=== PATIENT | female | born 1970 | race Caucasian/White ===

== ENCOUNTER → 2020-10-28 11:43 | Outpatient (BNVA) | payer OTHER, SELFPAY | PROVIDERS: Visit Provider Nurse Practitioner Family | DX: R53.83 Other fatigue (principal); E78.5 Hyperlipidemia, unspecified; M54.5 Low back pain; L03.90 Cellulitis, unspecified | CPT/HCPCS: 80048; 80061; 84443 ==

== ENCOUNTER → 2020-11-16 08:22 | Outpatient (BNVA) | payer OTHER, SELFPAY | PROVIDERS: Visit Provider Nurse Practitioner Family | DX: R30.0 Dysuria (principal); R31.9 Hematuria, unspecified; N39.0 Urinary tract infection, site not specified | CPT/HCPCS: 81000; 87077; 87086; 87184 ==

== ENCOUNTER 2022-07-27 07:02 | Outpatient (CLI) | payer BC, MEDICAID, SELFPAY ==
[2022-07-27] MEDS: iohexol 350 mg/mL 500 mL Btl (per mL) IV (07:22)
--- NOTE | 2022-07-27 07:30 | CT_ITS ---
WS: [id number] CT ABDOMEN PELVIS TECHNIQUE: Contrast-enhanced CT of the abdomen and pelvis with coronal and sagittal reformatted image s. CLINICAL INFORMATION: R19.00 - Intra-abdominal and pelvic swelling, mass and dwayne... COMPARISON: None. DLP: 491.[address] scans at [facility] use at least one of these dose optimization techniques: automated e xposure control; mA and/or kV adjustment per patient size (includes targeted exams where dose is matc hed to clinical indication); or iterative reconstruction. FINDINGS: Large heterogeneously enhancing fibroid uterus. There is a large mass in the midabdomen abutting the uterus, presumably of uterine origin. This measures approximately 18 x 13 x 24.0 CM. Associated displ acement of intra-abdominal contents. Small amount of surrounding fluid in the RIGHT adnexa. Endometri al canal displaced to the RIGHT due to additional heterogeneously enhancing uterine mass likely fibro id measuring 7.3 x 9.4 CM. Above-described large abdominal mass appears to originate from the uterus but difficult to localize due to large size and organ displacement. Recommend BREAD PANNER consultation for fu rther evaluation. Note feeding arteries and veins along the RIGHT psoas extending from the uterus to the abdominal mass.Vena cava is compressed. Mild RIGHT pelvocaliectasis. No hydronephrosis in either kidney. Normal renal parenchymal enhancement . Normal liver. Normal portal vein and splenic vein. Normal spleen. Normal gallbladder. Lung bases ar e well aerated. Mild disc bulging L4-L5 and L5-S1. Moderate esophageal hiatal hernia. Normal caliber abdominal aorta. Aorta is compressed and displaced to the LEFT. Normal sigmoid colon. CT/CT abdomen pelvis w con* [id number] IMPRESSION: 1. Large heterogeneous enhancing abdominal mass occupies the majority of the a bdomen and displaces the surrounding organs. This measures approximately 18.1 x 13.3 x 24.1 cm likely leiomyoma originating from the uterus. Leiomyosarcoma no t excluded. Recommend BREAD PANNER consultation for resection. 2. Additional heterogeneously enhancing LEFT uterine fibroid measuring 7.3 x 9 .4 cm with displacement of the uterine canal into the RIGHT pelvis. 3. Moderate esophageal hiatal hernia. 4. Small amount of fluid along the RIGHT aspect of the abdominal mass extendin g along the RIGHT psoas with feeding vessels. 5. Mild RIGHT pelvocaliectasis. Patient at risk for intermittent obstruction d ue to the large BREAD PANNER mass. Notified LULA Baugh at 07/27/2022 9:44 AM.
== END 2022-07-27 07:03 | disposition home or self-care (01) ==
LOC: RAD 07:04
PROVIDERS: Visit Provider Nurse Practitioner
DX: R19.00 Intra-abdominal and pelvic swelling, mass and lump, unspecified site (principal); K44.9 Diaphragmatic hernia without obstruction or gangrene; D25.9 Leiomyoma of uterus, unspecified
CPT/HCPCS: 74177; Q9967

== ENCOUNTER → 2022-09-02 09:09 | Outpatient (BNVA) | payer BC, MEDICAID, SELFPAY | PROVIDERS: PCP Nurse Practitioner; Visit Provider Nurse Practitioner | DX: E78.5 Hyperlipidemia, unspecified (principal) | CPT/HCPCS: 80053; 80061; 82306; 84443; 85025 ==

== ENCOUNTER 2022-10-04 13:17 | Outpatient (CLI) | payer BC, MEDICAID, SELFPAY ==
--- NOTE | 2022-10-04 14:00 | USCV_ITS ---
Opnce Val Age: 52 Gender: F : 1970 Exam Date: 10/04/2022 13:31 Ordering Phys: Kaylan Borjas WEB SPECIALIST WEB SPECIALIST Technologist: Kim Shane Sprinkler Worker Exam Location: [facility] [place]_ Indication: pain RIGHT LEFT Brachial 135.00 mmHg Brachial 132.00 mmHg Pressure (mmHg) Waveform Pressure (mmHg) Waveform 171.00 FACILITIES MANAGEMENT EXECUTIVE 177.00 164.00 DPA 161.00 1.20 Ankle/Brachial Index 1.30 133.00 Pre-Exercise Toe Pressure 141.00 0.99 Pre-Exercise Toe/Brachial Index 1.00 FINDINGS Resting XIOMARA of 1.2 on the right and 1.3 on the left Resting TBI of 0.99 on the right and 1.0 on the left CONCLUSIONS Normal resting ABIs and TBIs bilaterally No evidence of any significant arterial obstruction, based on the above findings. Dr Vasiliy Pineda MD [facility] (Electronically Signed) Final Date: 25 October 2022 09:31 S
== END 2022-10-04 13:18 | disposition home or self-care (01) ==
LOC: RAD 13:21
PROVIDERS: PCP Nurse Practitioner; Visit Provider Nurse Practitioner
DX: I73.9 Peripheral vascular disease, unspecified (principal); M79.605 Pain in left leg; M79.604 Pain in right leg
CPT/HCPCS: 93005; 93922

== ENCOUNTER 2022-10-07 12:06 | Outpatient (CLI) | payer BC, MEDICAID, SELFPAY ==
[2022-10-07 13:05] VITALS: BMI 29.3
--- NOTE | 2022-10-07 13:08 | ECG_ITS ---
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 Interpretive Statements NAME OF STUDY: TREADMILL STRESS ECHOCARDIOGRAM INDICATION: Pre Operative Clearance PROCEDURE: At the baseline, the patient's blood pressure was 134/80 mm Hg with a heart rate of 65 bpm and oxygen saturation of 95%. The baseline electrocardiogram showed normal sinus rhythm with nonspecific T wave changes in anterior leads. The patient exercised for 6 min 39 seconds on a standard Giacomo protocol. Patient attained a maximum heart rate of 153 beats per minute(90% of the maximum predicted heart rate) with a blood pressure at the peak exercise of 190/88 mm Hg. The EKG at the peak exercise revealed sinus tachycardia with no significant ST-T wave changes. Patient did not have any chest pain or any significant EKG changes with the exercise During the recovery phase, there were no new changes. Blood pressure at the end of the recovery phase was 121/69 mm Hg with a heart rate of 78 per minute and oxygen saturation of 98%. Echocardiographic pictures were taken at the baseline, immediately following the peak exercise and during the recovery phase. CONCLUSION: 1. Normal EKG response to treadmill exercise. 2. No exercise-induced chest pain or cardiac arrhythmia. 3. Baseline normal blood pressure with hypertensive response to exercise. 4. Good exercise tolerance, attained a maximum of 10.2 METs 5. Please see separate report for the echocardiographic response to exercise. Electronically Signed On 10-07-2022 15:07:42 CDT by Eva Shelley M.D. [email or web address]
--- NOTE | 2022-10-07 13:09 | USCV_ITS ---
Stress Echo Val Ponce Age: 52 Gender: F : 1970 Exam Date: 10/07/2022 13:19 Ordering Phys: Eva Shelley MD ([email or web address]) Technologist: Frankie Lobato [place]am Location[place] [facility] [place] Indication: pre-op clearance Rhythm: Sinus Patient History: Family history Cardiac Medications: NONE Medications in past 24 hours: Contrast: Stress Results Protocol: Giacomo Total dose(mL): Exercise Duration (min:sec): 06:39 METS: 10.2 Resting HR: 63 Resting BP: 134 / 80 Peak HR: 153 Peak BP: 193 / 99 Max Predicted HR: 170 90 % Max Predicted HR Target HR: 145 Double Product: 47931 Stress Summary: The patient's target heart rate was achieved BP Response: Normal Reason for Termination: Maximal effort/unable to continue Cardiac Symptoms: None ECG Analysis Resting ECG: Stress ECG: Arrhythmia: MEASUREMENTS (Male/Female) Normal Values FINDINGS PROCEDURE: At the baseline, the patient's blood pressure was 134/80 mmHg with a heart rate of 63 bpm. The patient exercised for 6 minutes 39 seconds on a standard Giacomo protocol. Patient attained a maximum heart rate of 153 beats per minute(90% of the maximum predicted heart rate) with a blood pressure at the peak exercise of 193/99 mm Hg. During the recovery phase, there were no new changes. Echocardiographic pictures were taken at the baseline, immediately following the peak exercise and during the recovery phase. Baseline echocardiogram: Normal left ventricular size and systolic function with ejection fraction estimated at 60 %. No regional wall motion abnormalities. Normal right ventricle size and systolic function. Normal left and right atrial size. No pericardial effusion. No intracardiac masses. Peak exercise echocardiogram: Normal augmentation of left ventricular systolic function with exercise. No new regional wall motion abnormalities. Recovery echocardiogram: Left ventricular systolic function normalizes. No regional wall motion abnormalities. CONCLUSIONS 1. This is a treadmill stress echocardiogram. 2. Good exercise tolerance, attained a maximum of 10.2 METs. Double product of 29,530. 3. Normal blood pressure and heart rate response to exercise. 4. Normal echocardiographic response to exercise. 5. Normal EKG response to treadmill exercise. Eva Shelley MD (Electronically Signed) Final Date: 11 October 2022 17:04 S
[2022-10-07 13:47] VITALS: BP 121/69; PULSE 77
== END 2022-10-07 12:07 | disposition home or self-care (01) ==
LOC: CDL 12:06
PROVIDERS: PCP Nurse Practitioner; Visit Provider Nurse Practitioner
DX: Z01.810 Encounter for preprocedural cardiovascular examination (principal); R19.00 Intra-abdominal and pelvic swelling, mass and lump, unspecified site
CPT/HCPCS: 93017; 93350

== ENCOUNTER 2022-10-22 06:57 | Emergency (ER) | payer BC, MEDICAID, SELFPAY ==
[2022-10-22 07:05] VITALS: BP 136/77; PULSE 87; RESP 18; TEMP 36.9; O2SAT 98; BMI 26.2
--- NOTE | 2022-10-22 07:09 | ECG_ITS ---
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 Measurements Intervals [place] Rate: 90 P: 61 MD: 188 QRS: 40 QRSD: 72 T: 46 QT: 321 QTc: 395 Interpretive Statements SINUS RHYTHM NONSPECIFIC T-WAVE ABNORMALITY Compared to ECG 10/04/2022 10:38:32 No significant changes Electronically Signed On 10-22-2022 12:29:23 CDT by Willie Raza M.D. [email or web address]
--- NOTE | 2022-10-22 07:28 | W.ED.BACK ---
HPI - Back Pain/Injury General: Chief Complaint: Back Pain/Injury Stated Complaint: sob, chest/neck/shoulder pain Time Seen by Provider: 10/22/22 07:20 Source: patient Mode of arrival: ambulatory History of Present Illness: 52-year-old female presents emergency complaining of left flank pain. Her symptoms began a week ago at which time she was seen at a local primary care clinic started on antibiotics presumptively for UTI advised to return if has worsening symptoms. In last 24 hours symptoms have worsened significantly she has sharp pain in the left flank radiating down into the groin. She denies hematuria she has been nauseous no hematochezia or melena several weeks ago she had a hysterectomy. She seemed to been recovering well from that until this began. She denies any fever sweats chills no hematochezia melena hematemesis coffee-ground emesis. Onset (ago): hour(s) Timing: constant Severity: moderate Similar Symptoms Previously: No Quality: sharp Location: left flank Exacerbating factors: movement and deep breaths Relieving factors: other (Remaining still) Associated symptoms: Reports difficulty walking; Deny abdominal pain, arthralgias, chills, change in bowel habits, dysuria, fatigue, fecal incontinence, fever(s), hematuria, myalgias, nausea, numbness, syncope, tingling/numbness/burning, urinary frequency, urinary urgency, vomiting or weakness Review of Systems Const: Denies: fever(s), chills or fatigue Card: Denies: syncope GI: Denies: abdominal pain, nausea, vomiting, fecal incontinence or change in bowel habits : Denies: dysuria, urinary urgency or hematuria Neuro: Reports: difficulty walking [facility] PFSH: Medical History Abnormal EKG Environmental allergies Hyperlipidemia Uterine fibroid Family History Father Hypertension CAD (coronary artery disease) Dementia Myocardial infarction Hyperlipidemia Cardiac arrhythmia Renal failure Mother CAD (coronary artery disease) CHF (congestive heart failure) Brother Cancer prostate Grandfather CAD (coronary artery disease) Hypertension Cardiac arrhythmia CHF (congestive heart failure) Grandmother Stroke CHF (congestive heart failure) Social History (Reviewed 10/22/22 @ 12:24 by GRETCHEN Leiva Smoking and tobacco status: former smoker Physical Exam Const: GENERAL APPEARANCE: cooperative and comfortable ORIENTATION/CONSCIOUSNESS: Yes awake, Yes oriented to person, Yes oriented to place and Yes oriented to time HENMT: COMMON NORMALS: normocephalic, atraumatic and hearing grossly normal bilaterally HEAD & SCALP: normocephalic and atraumatic Resp: COMMON NORMALS: normal respiratory effort, No retractions and No use of accessory muscles AUSCULTATION: rales on the left at the base Cardio: COMMON NORMALS: regular rate, regular rhythm and No murmurs present (Cardio) RATE: regular rate RHYTHM: regular rhythm GI: COMMON NORMALS: Soft to palpation and No hepatosplenomegaly present AUSCULTATION: Yes normoactive bowel sounds PALPATION: Yes Soft to palpation, No Tenderness to palpation present (GI), No Guarding due to palpation present (GI) and Yes No hepatosplenomegaly present Extremity: COMMON NORMALS: normal to inspection, capillary refill normal, no clubbing, cyanosis or edema, no calf tenderness and no pedal edema Neuro: SENSORIUM/ORIENTATION: Yes oriented to person, Yes oriented to place and Yes oriented to time Skin: COMMON NORMALS: no rashes or lesions noted GENERAL SKIN EXAM: no rashes or lesions noted Course Vital Signs: Vital signs: Vital Signs Temperature 98.4 F 10/22/22 07:05 Pulse Rate 89 10/22/22 10:30 Respiratory Rate 16 10/22/22 10:30 Blood Pressure 124/76 10/22/22 10:30 Pulse Oximetry 98 10/22/22 10:30 Oxygen Delivery Me thod Room Air 10/22/22 10:30 MDM - Back Pain/Injury Medical Decision Making Left lower lobe pneumonia at the costophrenic angle. CTA shows small peripheral PEs. Lovenox given here started on Eliquis also started on oral antibiotics vital signs are stable no sign of right heart strain oxygenation normal on room air. Discharge home discussed patient importance of maintaining a day coagulant until released by her primary care doctor should follow-up with her primary care doctor within a month and have her primary care doctor continue the refills on the anticoagulant until she is taken off of it. Medical Records I reviewed the patient's medical records. Labs I reviewed the patient's lab results. 10/22/22 07:32 10/22/22 07:32 Radiology Impressions Chest X-Ray 10/22/22 07:34 IMPRESSION: 1. Nonspecific left lung base opacity favors atelectasis or pneumonia. 2. A small left pleural fluid collection may be present as well. Laboratory Results WBC 13.4 10^3/uL (4.0-10.0) H 10/22/22 07:32 RBC 3.64 10^6/uL (4.1-5.3) L 10/22/22 07:32 Hgb 10.4 g/dL (11.5-15.3) L 10/22/22 07:32 Hct 33.3 % (37.0-47.0) L 10/22/22 07:32 MCV 91.5 fl (81-99) 10/22/22 07:32 MCH 28.6 pg (28.0-34.0) 10/22/22 07:32 MCHC 31.2 g/dL (30.0-36.0) 10/22/22 07:32 RDW 12.9 % (12.1-15.1) 10/22/22 07:32 Plt Count 323 10^3/cmm (130-400) 10/22/22 07:32 MPV 10.3 fL (7.4-10.4) 10/22/22 07:32 Neut % (Auto) 87.4 % 10/22/22 07:32 Lymph % (Auto) 5.6 % 10/22/22 07:32 [place] % (Auto) 6.2 % 10/22/22 07:32 Eos % (Auto) 0.1 % 10/22/22 07:32 Baso % (Auto) 0.3 % 10/22/22 07:32 Neut # (Auto) 11.66 10^3/uL (1.8-7.7) H 10/22/22 07:32 Lymph # (Auto) 0.8 10^3/uL (0.8-4.8) 10/22/22 07:32 [place] # (Auto) 0.8 10^3/uL (0.2-0.9) 10/22/22 07:32 Eos # (Auto) 0.0 10^3/uL (0.0-0.8) 10/22/22 07:32 Baso # (Auto) 0.0 10^3/uL (0.0-0.1) 10/22/22 07:32 Nucleated RBC % (auto) 0 % 10/22/22 07:32 Nucleated RBCs # 0.0 /100WBC 10/22/22 07:32 Sodium 136 mmol/L (136-145) 10/22/22 07:32 Potassium 4.3 mmol/L (3.5-5.1) 10/22/22 07:32 Chloride 101 mmol/L (98-107) 10/22/22 07:32 Carbon Dioxide 22 mmol/L (22-29) 10/22/22 07:32 Anion Gap 17.3 (5-19) 10/22/22 07:32 BUN 8 mg/dL (6-20) 10/22/22 07:32 Creatinine 0.5 mg/dL (0.5-0.9) 10/22/22 07:32 GFR Calculation 130.6 mL/min (90-130) H 10/22/22 07:32 Glucose 103 mg/dL (65-115) 10/22/22 07:32 Calculated Osmolality 281 mOsm/kg (285-295) L 10/22/22 07:32 Calcium 9.2 mg/dL (8.5-10.5) 10/22/22 07:32 Total Bilirubin 0.4 mg/dL (0.15-1.2) 10/22/22 07:32 AST 47 U/L (0-32) H 10/22/22 07:32 ALT 49 U/L (0-33) H 10/22/22 07:32 Alkaline Phosphatase 160 U/L (35-105) H 10/22/22 07:32 Total Protein 7.4 g/dL (6.6-8.7) 10/22/22 07:32 Albumin 3.5 g/dL (3.5-5.2) 10/22/22 07:32 Globulin 3.9 g/dL (1.3-4.6) 10/22/22 07:32 Urine Color Yellow (Yellow) 10/22/22 07:41 Urine Appearance Clear (CLEAR) 10/22/22 07:41 Urine pH 6 (5-7) 10/22/22 07:41 Ur Specific Gepp 1.015 (1.005-1.030) 10/22/22 07:41 Urine Protein Neg (Negative) 10/22/22 07:41 Urine Glucose (UA) Norm (Normal) 10/22/22 07:41 Urine Ketones Negative (Negative) 10/22/22 07:41 Urine Blood 2+ (Negative) H 10/22/22 07:41 Urine Nitrate Negative (Negative) 10/22/22 07:41 Urine Bilirubin Neg (Negative) 10/22/22 07:41 Urine Urobilinogen Norm mg/dL (Negative) 10/22/22 07:41 Ur Leukocyte Esterase Negative (Negative) 10/22/22 07:41 Urine RBC 0-4 /hpf (0-2) H 10/22/22 07:41 Urine WBC 0-4 /hpf (0-5) H 10/22/22 07:41 Ur Squamous Epith Cells 5-10 /hpf (0-5) H 10/22/22 07:41 Amorphous Sediment Not Reportable 10/22/22 07:41 Urine Bacteria 1+ /hpf (NONE) H 10/22/22 07:41 Discharge Plan Discharge Patient Disposition: Home Clinical Impression: Pulmonary embolism, Left lower lobe pneumonia Condition: Stable Prescriptions: New levofloxacin 750 mg tablet 750 mg PO DAILY 7 Days Qty: 7 0RF Eliquis DVT-PE Treat 30D Start 5 mg (74 tabs) tablets,dose pack See Rx Instructions .ROUTE .COMPLEX Qty: 74 0RF Rx Instructions: orally per package directions hydrocodone-acetaminophen 5-325 mg tablet 1 tab PO Q6H PRN (Reason: pain) Qty: 15 0RF No Action multivitamin Tablet 1 tab PO DAILY acetaminophen 325 mg Tablet 650 mg PO QID PRN (Reason: Pain) Discharge Orders: Discharge ED (Routine); Ordered 10/22/22 Ordered By: Guillermo Queen Referrals: Kaylan Borjas FNP [Primary Care Provider] - Discharge Diet: Usual diet Discharge Activity: Increase activity as tolerated Patient Instructions: Pulmonary Embolism (ED), Pneumonia (ED), Opioid Safety, Pain Management Activity Restrictions/Additional Instructions: Follow-up with your primary care doctor within the week. Return for worsening problems. You should continue on the Eliquis after this initial prescription is completed your primary care doctor will refill this for you Coding Level of Care Code ED Commercial Correspondent for Filiberto Watson
--- NOTE | 2022-10-22 07:34 | XRR_ITS ---
PROCEDURE INFORMATION: Exam: XR Chest Exam date and time: 10/22/2022 7:47 AM Age: 52 years old Clinical indication: Cough and dyspnea; Prior surgery; Surgery date: 3-7 days post-operative; Surgery type: Hysto; Additional info: Dyspnea/cough TECHNIQUE: Imaging protocol: Radiologic exam of the chest. Views: 1 view. Total images: 1 COMPARISON: CT abdomen pelvis w con* [id number] 07/27/2022 7:18 AM FINDINGS: Lungs: Nonspecific left lung base opacity favors atelectasis or pneumonia. Pleural spaces: A small left pleural fluid collection may be present as well. Heart/Mediastinum: Unremarkable. No cardiomegaly. Bones/joints: Unremarkable. XR/XR chest 1V portable [id number] IMPRESSION: 1. Nonspecific left lung base opacity favors atelectasis or pneumonia. 2. A small left pleural fluid collection may be present as well.
[2022-10-22 07:42] LABS: Basophils % 0.3 %; Eosinophils % 0.1 %; Hematocrit 33.3 % (37.0-47.0); Hemoglobin 10.4 g/dL (11.5-15.3); Lymphocytes # 0.8 10^3/uL (0.8-4.8); Lymphocytes % 5.6 %; Mean Corpuscular HGB Conc 31.2 g/dL (30.0-36.0); Mean Corpuscular Hemoglobin 28.6 pg (28.0-34.0); Mean Corpuscular Volume 91.5 fl (81-99); Mean Platelet Volume 10.3 fL (7.4-10.4); Monocytes # 0.8 10^3/uL (0.2-0.9); Monocytes % 6.2 %; Neutrophils # 11.66 10^3/uL (1.8-7.7); Neutrophils % 87.4 %; Nucleated Red Blood Cells % 0 %; Platelet Count 323 10^3/cmm (130-400); Red Blood Count 3.64 10^6/uL (4.1-5.3); Red Cell Distribution Width 12.9 % (12.1-15.1); White Blood Count 13.4 10^3/uL (4.0-10.0)
[2022-10-22 08:02] VITALS: RESP 20
[2022-10-22] MEDS: ondansetron 2 mg/ML SDV 2 mL 4 MG IVP (08:02)
[2022-10-22] MEDS: pantoprazole 40 mg SDV 80 MG IVP (08:02)
[2022-10-22] MEDS: morphine 4 mg/mL SDV 1 mL IVP (08:02)
[2022-10-22 08:21] LABS: Alanine Aminotransferase 49 U/L (0-33); Albumin Level 3.5 g/dL (3.5-5.2); Alkaline Phosphatase 160 U/L (35-105); Anion Gap 17.3 (5-19); Aspartate Amino Transferase 47 U/L (0-32); Blood Urea Nitrogen 8 mg/dL (6-20); Calcium 9.2 mg/dL (8.5-10.5); Carbon Dioxide 22 mmol/L (22-29); Chloride 101 mmol/L (98-107); Globulin 3.9 g/dL (1.3-4.6); Glomerular Filtration Rate 130.6 mL/min (90-130); Glucose 103 mg/dL (65-115); Osmolality Calculated 281 mOsm/kg (285-295); Potassium 4.3 mmol/L (3.5-5.1); Sodium 136 mmol/L (136-145); Total Bilirubin 0.4 mg/dL (0.15-1.2); Total Protein 7.4 g/dL (6.6-8.7)
[2022-10-22 08:26] LABS: Add Urine Microscopic? YES; Bilirubin Urine Neg (Negative); Blood Urine 2+ (Negative); Glucose Urine UA Norm (Normal); Ketones Urine Negative (Negative); Leukocyte Esterase Urine Negative (Negative); Nitrate Urine Negative (Negative); Protein Urine Neg (Negative); Specific Gravity, Urine 1.015 (1.005-1.030); Urine Appearance Clear (CLEAR); Urine Color Yellow (Yellow); Urobilinogen Urine Norm (Negative); pH Urine 6 (5-7)
[2022-10-22 08:27] LABS: Add Urine Culture? No; Bacteria Urine 1+ /hpf; RBC Urine 0-4 /hpf (0-2); WBC Urine 0-4 /hpf (0-5)
--- NOTE | 2022-10-22 09:15 | CTR_ITS ---
PROCEDURE INFORMATION: Exam: CTA Chest With Contrast Exam date and time: 10/22/2022 9:22 AM Age: 52 years old Clinical indication: Left-sided; Prior surgery; Surgery date: 3-7 days post-operative; Surgery type: Hysto; Patient HX: Pain under left breast; Additional info: Tachypnea, chest pain TECHNIQUE: Imaging protocol: Computed tomographic angiography of the chest with contrast. Exam focused on the arteries. 3D rendering (Not supervised by radiologist): MIP and/or 3D reconstructed images were created by the technologist. Radiation optimization: All CT scans at this facility use at least one of these dose optimization techniques: automated exposure control; mA and/or kV adjustment per patient size (includes targeted exams where dose is matched to clinical indication); or iterative reconstruction. Contrast material: OMNI 350; Contrast volume: 73 ml; Contrast route: INTRAVENOUS (IV); REPORTING DATA: Count of CT and Cardiac NM exams in prior 12 months: This patient has received [address] and 0 known cardiac nuclear medicine studies in the 12 months prior to the current study. COMPARISON: CR (CHEST, ) 10/22/2022 7:47 AM RADIATION DOSE METRICS: Total DLP (mGy-cm): 306.97 FINDINGS: Pulmonary arteries: Mild bilateral lower lobe, upper lobe and right middle lobe segmental pulmonary emboli are seen, most prominent in the lower lobes (right greater than left). The main, right and left pulmonary arteries appear normal. Aorta: No thoracic aortic aneurysm. No thoracic aortic dissection. Trachea: The central airway is normal. Lungs: Small left pleural effusion. Mild left lower lobe atelectasis. Some small adjacent patchy ground-glass opacities. This may be related to atelectasis, although early pulmonary infarcts or pneumonia cannot be excluded. No right lung regions of consolidation or ground-glass opacity. No interlobular septal thickening or honeycombing seen to suggest interstitial lung disease on CT. Pleural spaces: No right pleural effusion or pneumothorax. Heart: The heart size is normal. Normal RV/LV ratio of 0.9. No pericardial effusion. No significant coronary arterial atherosclerotic vascular calcifications. Lymph nodes: No enlarged lymph nodes. Bones/joints: No acute osseous abnormalities. Soft tissues: Unremarkable. Other findings: Small hiatal hernia is seen. The stomach is not well distended with relative gastric fold prominence. CT/CT angio chest PE protcl [id number] IMPRESSION: 1. Mild bilateral lower lobe, upper lobe and right middle lobe segmental pulmonary emboli, most prominent in the lower lobes (right greater than left). No CT evidence of right ventricular strain. No thoracic aortic aneurysm or thoracic aortic dissection. 2. Small left pleural effusion. Mild left lower lobe atelectasis. Some small adjacent patchy ground-glass opacities. This may be related to atelectasis, although early pulmonary infarcts or pneumonia cannot be excluded.
[2022-10-22] MEDS: iohexol 350 mg/mL 500 mL Btl (per mL) IV (09:25)
[2022-10-22 10:30] VITALS: BP 124/76; PULSE 89; RESP 16; O2SAT 98
[2022-10-22] MEDS: enoxaparin 80 mg/0.8 mL Syringe 70 MG SUBCUT (10:50)
--- NOTE | 2022-10-22 11:12 | PC.NURSE ---
PT DENIES ANY REACTION TO INJECTION.
== END 2022-10-22 11:12 | disposition home or self-care (01) ==
PROVIDERS: Emergency Provider Family Medicine; PCP Nurse Practitioner
DX: I26.99 Other pulmonary embolism without acute cor pulmonale (principal); J18.9 Pneumonia, unspecified organism; Z87.891 Personal history of nicotine dependence; E78.5 Hyperlipidemia, unspecified
CPT/HCPCS: 36415; 71045; 71275; 80053; 81001; 85025; 93005; 96372; 96374; 96375; 99285; C9113; J1650; J2270; J2405; Q9967

== ENCOUNTER → 2022-12-14 08:35 | Outpatient (BNVA) | payer BC, MEDICAID, SELFPAY | PROVIDERS: PCP Nurse Practitioner; Visit Provider Nurse Practitioner | DX: M25.511 Pain in right shoulder (principal) | CPT/HCPCS: 73030 ==

== ENCOUNTER → 2023-04-13 08:10 | Outpatient (BNVA) | payer BC, MEDICAID, SELFPAY | PROVIDERS: PCP Nurse Practitioner; Visit Provider Nurse Practitioner Family | DX: R30.0 Dysuria (principal); Z79.899 Other long term (current) drug therapy; E78.5 Hyperlipidemia, unspecified; E55.9 Vitamin D deficiency, unspecified; M54.9 Dorsalgia, unspecified; G89.29 Other chronic pain; M54.2 Cervicalgia; S86.899A Other injury of other muscle(s) and tendon(s) at lower leg level, unspecified leg, initial encounter; Z12.31 Encounter for screening mammogram for malignant neoplasm of breast; N39.0 Urinary tract infection, site not specified | CPT/HCPCS: 80053; 80061; 81000; 81003; 82306; 83036; 84443; 85025; 87077; 87086; 87184 ==

== ENCOUNTER 2023-04-14 12:29 | Outpatient (CLI) | payer BC, MEDICAID, SELFPAY ==
--- NOTE | 2023-04-14 12:37 | XR_ITS ---
WS: [id number] Cervical spine, 4 views, 04/14/2023 Clinical Data: M54.2 - Cervicalgia Comparison: None. Findings: No compression fractures are seen. There is degenerative disc narrowing at C5-C6. There is minimal anterior spurring at C4-C5. There is no prevertebral soft tissue swelling. The odontoid is un remarkable. The soft tissues of the neck and the lung apices are normal. Impression: 1. Degenerative disc narrowing at C5-C6. 2. Minimal spurring at C4-C5.
--- NOTE | 2023-04-14 12:37 | XR_ITS ---
WS: [email or web address] Exam: XR tibia fibula RT 2V [id number] Date/Time of Exam: 04/14/2023 12:45 PM Reason For Exam: S86.899A - Other injury of other muscle(s) and tendon(s) ... In multiple views, no fractures, soft tissue swelling, or unusual calcifications are noted in or arou nd the tibia and fibula. There is normal bony alignment. No irregularity to the bony architecture i s noted. IMPRESSION: Negative RIGHT tibia and fibula.
== END 2023-04-14 12:30 | disposition home or self-care (01) ==
LOC: RAD 12:29
PROVIDERS: PCP Nurse Practitioner; Visit Provider Nurse Practitioner Family
DX: M50.322 Other cervical disc degeneration at C5-C6 level (principal); S86.899A Other injury of other muscle(s) and tendon(s) at lower leg level, unspecified leg, initial encounter; X58.XXXA Exposure to other specified factors, initial encounter
CPT/HCPCS: 72040; 73590

== ENCOUNTER 2023-04-20 09:08 | Outpatient (CLI) | payer BC, MEDICAID, SELFPAY ==
--- NOTE | 2023-04-20 09:10 | MM_ITS ---
WS: [email or web address] BILATERAL 3D TOMOSYNTHESIS DIGITAL SCREENING MAMMOGRAPHY WITH CAD CLINICAL INFORMATION: Z12.31 - Encounter for screening mammogram for malignant ... HISTORY: Screening mammogram. No current complaints. COMPARISON: None. TECHNIQUE: Bilateral CC and MLO views. FINDINGS: Scattered fibroglandular densities bilaterally. No suspicious focal mass, asymmetry, calcifications, or architectural distortion. No evidence of malignancy. IMPRESSION: MM/[place] [id number] BI-RADS: 1-Negative FOLLOW UP: 1 Year Follow-up Recommend return to annual screening mammography.
== END 2023-04-20 09:09 | disposition home or self-care (01) ==
LOC: RAD 09:08
PROVIDERS: PCP Nurse Practitioner; Visit Provider Nurse Practitioner Family
DX: Z12.31 Encounter for screening mammogram for malignant neoplasm of breast (principal)
CPT/HCPCS: 77063; 77067

== ENCOUNTER 2023-05-04 11:34 | Outpatient (CLI) | payer BC, MEDICAID, SELFPAY ==
--- NOTE | 2023-05-04 11:39 | XR_ITS ---
WS: [id number] Thoracic spine, 3 views, 05/04/2023 Clinical Data: M54.9 - Dorsalgia, unspecified Comparison: None. Findings: No compression fractures are seen. The disc heights are normal. The paravertebral regions are normal. Impression: Negative thoracic spine.
== END 2023-05-04 11:35 | disposition home or self-care (01) ==
LOC: RAD 11:34
PROVIDERS: PCP Nurse Practitioner Family; Visit Provider Nurse Practitioner Family
DX: M54.6 Pain in thoracic spine (principal); G89.29 Other chronic pain; N39.0 Urinary tract infection, site not specified
CPT/HCPCS: 72072; 81003

== ENCOUNTER → 2023-07-24 10:10 | Outpatient (BNVA) | payer BC, MEDICAID, SELFPAY | PROVIDERS: PCP Nurse Practitioner Family; Referring Provider Nurse Practitioner Family; Visit Provider Internal Medicine Pulmonary Disease | DX: Z86.711 Personal history of pulmonary embolism (principal) | CPT/HCPCS: 36415; 82785; 85025; 85049; 85378; 85384; 85610; 85613; 85651; 85730; 86003; 86038; 86140; 86146; 86147; 86200; 86225; 86235 ==

== ENCOUNTER 2023-07-31 08:40 | Outpatient (CLI) | payer BC, MEDICAID, SELFPAY ==
--- NOTE | 2023-07-31 09:00 | US_ITS ---
WS: [email or web address] Complete ABDOMINAL ULTRASOUND HISTORY: abdominal pain COMPARISON: None available. Liver: 14.5 cm in length. Normal size liver and echogenicity. No bile duct dilatation or mass. Portal Vein: Normal hepatopetal flow with monophasic waveform. Gallbladder: Normally distended gallbladder with no stones or wall thickening. CBD: 0.3 cm Pancreas: Poorly visualized. Right kidney: 9.7 cm x 5.4 x 4.7 cm. Cortex:1.0 cm. Normal size and echogenicity. No hydronephrosis or mass. Left kidney: 10.1 cm x 4.3 cm x 4.8 cm. Cortex: 1.0 cm. Normal size and echogenicity. No hydronephrosis or mass. Spleen: 9.5 cm. Normal size and echogenicity. Aorta and IVC: Unremarkable abdominal aorta and IVC. Impression: Normal complete abdomen ultrasound.
== END 2023-07-31 08:41 | disposition home or self-care (01) ==
LOC: RAD 08:41
PROVIDERS: PCP Nurse Practitioner Family; Visit Provider Internal Medicine Pulmonary Disease
DX: R10.32 Left lower quadrant pain (principal)
CPT/HCPCS: 76700

== ENCOUNTER 2023-08-15 13:26 | Outpatient (CLI) | payer BC, MEDICAID, SELFPAY ==
[2023-08-15 13:50] VITALS: PULSE 66; RESP 18; O2SAT 99
[2023-08-15] MEDS: albuterol 2.5 mg/3 mL Neb INHALATION (13:50)
[2023-08-15 13:54] VITALS: PULSE 72
== END 2023-08-15 13:27 | disposition home or self-care (01) ==
LOC: RT 13:26
PROVIDERS: PCP Nurse Practitioner Family; Visit Provider Internal Medicine Pulmonary Disease
DX: R06.02 Shortness of breath (principal)
CPT/HCPCS: 94060; 94729; J7613

== ENCOUNTER → 2023-11-28 10:49 | Outpatient (BNVA) | payer BC, MEDICAID, SELFPAY | PROVIDERS: PCP Nurse Practitioner Family; Visit Provider Nurse Practitioner Family | DX: R07.9 Chest pain, unspecified (principal); R10.84 Generalized abdominal pain; K56.41 Fecal impaction | CPT/HCPCS: 71046; 74018 ==

== ENCOUNTER 2023-12-04 12:06 | Outpatient (CLI) | payer BC, MEDICAID, SELFPAY ==
[2023-12-04] MEDS: iohexol 350 mg/mL 500 mL Btl (per mL) PO (12:58)
[2023-12-04] MEDS: iohexol 350 mg/mL 500 mL Btl (per mL) IV (13:28)
--- NOTE | 2023-12-04 13:30 | CT_ITS ---
WS: [id number] CT ABDOMEN AND PELVIS WITH CONTRAST HISTORY: R10.9 - Unspecified abdominal pain, epigastric and pelvic pain. Prior hysterectomy. TECHNIQUE: Imaging performed of the abdomen and pelvis with IV contrast. Single phase imaging of the abdomen. Coronal and sagittal reformats are submitted. All CT scans at [facility] use at [address] one of these dose optimization techniques: automated exposure control; mA and/or kV adjustment per patient size (includes targeted exams where dose is matched to clinical indication); or iterative re construction. IV CONTRAST: Omnipaque 350; 100 mL IV. Oral contrast: Yes. DLP: 561.35 mGy.cm COMPARISON: 07/27/2022 Lower thorax: Lung bases are clear. Heart is normal size. Moderate size hiatal hernia. Liver/biliary system: Normal size with no intrahepatic dilatation. Gallbladder: Normal. No gallstones or wall thickening. No pericholecystic fluid. Pancreas: Normal size pancreas and pancreatic duct. No adjacent inflammation. Spleen: Normal size spleen. No mass or infarct. Adrenal glands: Normal. Right kidney: Normal. Left kidney: Normal. Aorta: Normal. Lymphadenopathy: None. Free fluid: None. GI tract: No obstruction. Normal appendix. Very mild inflammation surrounding the distal descending c olon. No abscess. Abdominal wall: Fat containing umbilical hernia. Pelvis: No free fluid or adenopathy within the pelvis. Prior hysterectomy. LEFT adnexal/ovarian cyst 4.2 x 3.5 cm. RIGHT ovary may have been removed. Bones: Unremarkable. CT/CT abdomen pelvis w con* [id number] IMPRESSION: 1. Small LEFT ovarian cyst, 4.2 x 3.5 cm. 2. Moderate-sized hiatal hernia. 3. No GI tract obstruction. 4. No ascites. 5. Small fat-containing umbilical hernia. 6. Mild distal colon diverticulosis. There is some very mild stranding around the distal descending colon which could represent a very mild acute diverticuli tis.
== END 2023-12-04 12:07 | disposition home or self-care (01) ==
LOC: RAD 12:06
PROVIDERS: PCP Nurse Practitioner Family; Visit Provider Nurse Practitioner Family
DX: R10.9 Unspecified abdominal pain (principal); R10.2 Pelvic and perineal pain; Z90.710 Acquired absence of both cervix and uterus; N83.202 Unspecified ovarian cyst, left side; K44.9 Diaphragmatic hernia without obstruction or gangrene
CPT/HCPCS: 74177; Q9967

== ENCOUNTER → 2023-12-06 09:29 | Outpatient (BNVA) | payer BC, MEDICAID, SELFPAY | PROVIDERS: PCP Nurse Practitioner Family; Visit Provider Nurse Practitioner Family | DX: R63.5 Abnormal weight gain; R10.84 Generalized abdominal pain; R10.2 Pelvic and perineal pain | CPT/HCPCS: 80053; 81003; 83036; 84439; 84443; 85025 ==

== ENCOUNTER → 2024-01-29 08:41 | Outpatient (BNVA) | payer BC, MEDICAID, SELFPAY | PROVIDERS: PCP Nurse Practitioner Family; Visit Provider Obstetrics & Gynecology | DX: N83.202 Unspecified ovarian cyst, left side (principal) | CPT/HCPCS: 76830 ==

== ENCOUNTER → 2024-02-14 13:19 | Outpatient (BNVA) | payer BC, MEDICAID, SELFPAY | PROVIDERS: PCP Nurse Practitioner Family; Visit Provider Internal Medicine Rheumatology | DX: Z79.899 Other long term (current) drug therapy (principal); R89.9 Unspecified abnormal finding in specimens from other organs, systems and tissues | CPT/HCPCS: 36415; 83735; 84100; 84132; 85025; 86480; 86704; 86803; 87340 ==

== ENCOUNTER → 2024-05-02 08:51 | Outpatient (BNVA) | payer BC, MEDICAID, SELFPAY | PROVIDERS: PCP Nurse Practitioner Family; Visit Provider Obstetrics & Gynecology | DX: N83.202 Unspecified ovarian cyst, left side (principal); Z90.710 Acquired absence of both cervix and uterus; Z90.721 Acquired absence of ovaries, unilateral | CPT/HCPCS: 76830 ==

== ENCOUNTER → 2024-05-06 09:11 | Outpatient (BNVA) | payer BC, MEDICAID, SELFPAY | PROVIDERS: PCP Nurse Practitioner Family; Visit Provider Obstetrics & Gynecology | DX: R39.198 Other difficulties with micturition (principal) | CPT/HCPCS: 84315; 87086 ==

== ENCOUNTER 2024-11-28 12:30 | Outpatient (CLI) | payer BC, MEDICAID, SELFPAY | END 2024-11-28 12:31 | disposition home or self-care (01) | LOC: SLEEP 12:31 | PROVIDERS: PCP Nurse Practitioner Family; Visit Provider Internal Medicine Pulmonary Disease | DX: G47.30 Sleep apnea, unspecified (principal) | CPT/HCPCS: G0399 ==

== ENCOUNTER 2025-01-19 22:49 | Emergency (ER) | payer BC, MEDICAID, SELFPAY ==
--- OUTSIDE RECORDS SUMMARY | 2025-01-13 11:00 | XMS_ITS | Encounter Summary ---
Author Organization [facility] Address [address] [address] Phone Care Team Providers Care Chenille Machine Operator Name Role Phone Stevan Rodney MD Primary Care Provider Shaheed Stewart DO, Donald Unavailable [phone] Parker Card MD Unavailable Iggy Gee COMPUTER TYPESETTER KEYLINER Unavailable [phone] Kimberly Black AOCNP Unavailable [phone] Encounter Details Date Type Department Care Team (Late st Contact Info) Description 01/13/2025 11:00 AM CDT Lab LAB [facility] [address] [id number] Family history of blood clots; Personal history of PE (pulmonary embolism) Social History Tobacco Use Types Packs/Day Years Used Date Smoking Tobacco: Former Cigarettes 2 5 Q uit: 06/01/1996 Smokeless Tobacco: Never Alcohol Use Standard Drinks/Week Comments Never 0 (1 standard drink = 0.6 oz pur e alcohol) B1300 Health Literacy Answer Date Recor ded How often do you need to hav e someone help you when you read instructions, pamphlets, or other written material from your doctor or pharmacy? Never 12/12/2024 [facility] Utilities Answer Date Recorded In the past 12 months has e electric, gas, oil, or water company threatened to shut off services in your home? No 12/12/2024 Humiliation, Afraid, Rape, and Kick questionnair e Answer Date Recorded Within the last year, have y ou been afraid of your partner or ex-partner? No 12/12/2024 Within the last year, have y ou been humiliated or emotionally abused in other ways by your partner or ex-partner? No Within the last year, have y ou been kicked, hit, slapped, or otherwise physically hurt by your partner or ex-partner? No 12/12/2024 Within the last year, have y ou been raped or forced to have any kind of sexual activity by your partner or ex-partner? No 12/12/2024 Social Connection and Isolation Panel Answer Date Recorded In a typical week, how many times do you talk on the phone with family, friends, or neighbors? More than three times a week 12/12/2024 How often do you get togethe r with friends or relatives? More than three times a week 12/12/2024 How often do you attend [facility] or [facility] services? Never 12/12/2024 Do you belong to any clubs o r organizations such as congregation groups, unions, fraternal or athletic groups, or school groups? No 12/12/2024 How often do you attend meet ings of the clubs or organizations you belong to? Never 12/12/2024 Are you , , di vorced, , never , or living with a partner? 12/12/2024 AUDIT-C Answer Date Recorded Q1: How often do you have a drink containing alcohol? Never 12/12/2024 Q2: How many drinks containi ng alcohol do you have on a typical day when you are drinking? Patient does not drink Q3: How often do you have si x or more drinks on one occasion? Never 12/12/2024 Overall Financial Resource Strain (CARDIA) Answe r Date Recorded How hard is it for you to pa y for the very basics like food, housing, medical care, and heating? Not very hard 12/12/2024 PHQ-2 Answer Date Recorded Patient Health Questionnaire-2 Score 0 12/19/2024 [facility] - Occupational Stress Questionnaire Answer Date Recorded Do you feel stress - tense, restless, nervous, or anxious, or unable to sleep at night because your mind is troubled all the time - these days? To some extent 12/12/2024 Exercise Vital Sign Answer Date Recorde d On average, how many days pe r week do you engage in moderate to strenuous exercise (like a brisk walk)? 3 days 12/12/2024 On average, how many minutes do you engage in exercise at this level? 30 min 12/12/2024 Hunger Vital Sign Answer Date Recorded Within the past 12 months, y ou worried that your food would run out before you got the money to buy more. Sometimes true Within the past 12 months, t he food you bought just didn't last and you didn't have money to get more. Sometimes true PRAPARE - Transportation Answer Date Re corded In the past 12 months, has l ack of transportation kept you from medical appointments or from getting medications? No 11/29 In the past 12 months, has l ack of transportation kept you from meetings, work, or from getting things needed for daily living? No 12/12/2024 Housing Stability Vital Sign Answer Fredi e Recorded In the last 12 months, was t here a time when you were not able to pay the mortgage or rent on time? No 12/12/2024 In the past 12 months, how m any times have you moved where you were living? 0 12/12/2024 At any time in the past 12 m [facility], were you homeless or living in a intermediate (including now)? No 12/12/2024 [facility] - Mental Health Answer Date Recorde d Little interest or pleasure in doing things Not at all 12/19/2024 Feeling down, depressed, or hopeless Not at all 12/19/2024 Feeling of Stress Not on file 12/19/2024 Comments No Sex and Gender Information Value Date Recorded Sex Assigned at Female 04/09/2024 3:34 PM MANNEQUIN MOLD MAKER Legal Sex Female 3:31 PM MANNEQUIN MOLD MAKER Gender Identity Female 04/09/2024 3:34 PM MANNEQUIN MOLD MAKER Sexual Orientation Straight 05/07/2024 10 :15 AM MANNEQUIN MOLD MAKER documented as of this encounter Plan of Treatment Upcoming Encounters Date Type Department Care Team (Latest Contact Info) Description 02/06/2025 2:00 PM CDT Follow-Up [facility] [address] [place] [phone] [place] [address] [place] [address] [phone] 03/03/2025 7:30 AM MANNEQUIN MOLD MAKER Hospital Encounter [facility] [address] [place] [phone] Faustino Hummel Jr., DO [address] [place] [address] [phone] 03/03/2025 7:30 AM MANNEQUIN MOLD MAKER - 03/03/2025 9:45 AM MANNEQUIN MOLD MAKER Surgery [facility] [address] [place] [phone] Faustino Hummel Jr., [address] [id number] ROBOTIC ASSISTED LAP HIATAL HERNIA REPAIR [23637 (CPT )] Scheduled Procedures Name Priority Associated Diagnoses Date/Ti me ROBOTIC ASSISTED LAP HIATAL HERNIA REPAIR Large hiatal hernia 03/03/2025 7:30 AM MANNEQUIN MOLD MAKER ROBOTIC ASSISTED LAP NEENA/TOUPET FUNDOPLICATION Large hiatal hernia 03/03/2025 7:30 AM MANNEQUIN MOLD MAKER documented as of this encounter Procedures Procedure Name Priority Date/Time Associated Diagnosis Comments CARDIOLIPIN ANTIBODIES, IGA, IGG, IGM Routine 01/13/2025 10:51 AM CDT Family history of blood clots Personal history of PE (pulmonary embolism) BETA-2 GLYCOPROTEIN 1 ANTIBODIES, IGG AND IGM Routine 01/13/2025 10:51 AM CDT Family history of blood clots Personal history of PE (pulmonary embolism) PROTEIN C AND S PANEL, FUNCTIONAL Routine 01/13/2025 10:51 AM CDT Family history of blood clots Personal history of PE (pulmonary embolism) CBC WITH AUTO DIFFERENTIAL STAT 01/13/2025 10:51 AM CDT Family history of blood clots Personal history of PE (pulmonary embolism) ANTITHROMBIN PANEL Routine 01/13/2025 10 :51 AM CDT Family history of blood clots Personal history of PE (pulmonary embolism) CREATININE, SERUM Routine 01/13/2025 10: 51 AM CDT Family history of blood clots Personal history of PE (pulmonary embolism) LUPUS ANTICOAGULANT REFLEXIVE PANEL Routine 01/13/2025 10:51 AM CDT Family history of blood clots Personal history of PE (pulmonary embolism) D-DIMER, QUANTITATIVE STAT 01/13/2025 10:51 AM CDT Family history of blood clots Personal history of PE (pulmonary embolism) documented in this encounter Results * Creatinine, Serum (01/13/2025 10:51 AM CDT) Creatinine 0.86 0.52 - 1.04 mg/dl LAB CHEMISTRY METHOD 01/13/2025 11:25 AM CDT [facility] eGFR >60 >=60 mL/min/1.73 m2 LAB CHEMISTRY METHOD 01/13/2025 11:25 AM CDT [facility] Blood Venous blood specimen / Unknown Venipuncture / Unknown 01/13/2025 10:51 AM CDT 01/13/2025 10:56 AM CDT Parker Card MD LAB BLOOD ORDERABLES Final Resul t [facility] [address] [phone] * (ABNORMAL) D-dimer, quantitative (01/13/2025 10:51 AM CDT) D-DIMER QUANTITATIVE 0.74(H) <=0.50 ug/mlFEU LAB COAGULATION METHOD 01/13/2025 11:23 AM CDT [facility] Blood Venous blood specimen / Unknown Venipuncture / Unknown 01/13/2025 10:51 AM CDT 01/13/2025 10:56 AM CDT Parker Card MD LAB BLOOD ORDERABLES Final Resul t [facility] [address] [address] * (ABNORMAL) Protein C and S Panel, Functional (01/13/2025 10:51 AM CDT) Protein C Functional 177(H) 83 - 168 % 01/15/2025 2:10 PM CDT [email or web address] ([facility]) Comment: INTERPRETIVE INFORMATION: Protein C, Functional Access complete set of age- and/or gender-specific reference intervals for this test in the [employer] Test Directory (Leo). Protein C may be artifactually overestimated in the presence of heparin, direct thrombin inhibitors, or direct factor Xa inhibitors. If clinically indicated, consider repeat testing on a new specimen for confirmation after the presence of anticoagulant medications has been excluded. (J Thromb Haemost. 2020; 18(2):271-277). Protein S Functional 120 57 - 131 % 01/15/2025 2:10 PM CDT [email or web address] ([facility]) Comment: INTERPRETIVE INFORMATION: Protein S, Functional Patients on warfarin may have decreased functional protein S values. Patients should be off warfarin therapy for two weeks for accurate measurement of functional protein S. Artificially increased functional protein S values may be due to heparin therapy or the presence of direct thrombin inhibitors or factor Xa inhibitors. Access complete set of age- and/or gender-specific reference intervals for this test in the [employer] [facility] Test Directory (Leo). Performed By: [facility] [address] [place] [id number] Glove Stitcher: Selwyn Boudreaux MD, PhD CLIA Number: [id number] Blood Venous blood specimen / Unknown Venipuncture / Unknown 01/13/2025 10:51 AM CDT 01/13/2025 10:56 AM CDT Parker Card MD LAB BLOOD ORDERABLES Final Resul t [facility] [address] [place] [address] * Lupus Anticoagulant Reflexive Panel (01/13/2025 10:51 AM CDT) Prothrombin Time 12.0 12.0 - 15.5 s 01/15/2025 8:11 PM CDT [facility] ([facility]) Ptt-La Ratio 0.77 <=1.20 01/15/2025 8:11 PM CDT [facility] ([facility]) Drvvt Screen 0.86 <=1.20 01/15/2025 8:11 PM CDT [facility] ([facility]) Anti-Xa Qualitative Interpretation Not Performed Not Present 01/15/2025 8:11 PM CDT [facility] ([facility]) Thrombin Time Not Performed <=19.5 s 01/15/2025 8:11 PM CDT [facility] ([facility]) Anticoagulant Medication Neutralization Not Performed Not Performed 01/15/2025 8:11 PM CDT [facility] ([facility]) Neutralized PTT-LA Ratio Not Performed <=1.20 01/15/2025 8:11 PM CDT [facility] ([facility]) Neutralized dRVVT Screen Ratio Not Performed <=1.20 01/15/2025 8:11 PM CDT [facility] ([facility]) Drvvt 1:1 Mix Not Performed <=1.20 01/15/2025 8:11 PM CDT [facility] ([facility]) Drvvt Confirmation Not Performed <=1.20 01/15/2025 8:11 PM CDT [facility] ([facility]) Hexagonal Phospholipid Confirmation Not Performed <=7.9 s 01/15/2025 8:11 PM CDT [facility] ([facility]) Lupus Anticoagulant Interpretation See Note 01/15/2025 8:11 PM CDT [facility] ([facility]) Comment: Lupus anticoagulant not detected. This panel did not detect evidence for heparin, direct thrombin inhibitors, or direct Xa inhibitors and drug neutralization was not performed. Lupus anticoagulant antibodies are heterogeneous and antibody titers fluctuate over time. Laboratory tests used to identify lupus anticoagulant demonstrate variable sensitivity. Testing is best performed when the patient is not acutely ill and not anticoagulated. If there is strong clinical suspicion for antiphospholipid antibody syndrome (APS), consider testing for cardiolipin and beta-2 glycoprotein 1 antibodies (IgG and IgM) if this testing has not already been performed. INTERPRETIVE INFORMATION: Lupus Anticoagulant Reflex Panel This test was developed and its performance characteristics determined by [facility]. It has not been cleared or approved by the U.S. Food and Drug Administration. This test was performed in a CLIA-certified laboratory and is intended for clinical purposes. Performed By: [facility] [address] [place] [address] Glove Stitcher: Selwyn Boudreaux MD, PhD CLIA Number: [id number] Blood Venous blood specimen / Unknown Venipuncture / Unknown 01/13/2025 10:51 AM CDT 01/13/2025 10:56 AM CDT Parker Card MD LAB BLOOD ORDERABLES Final Resul t [facility] ([facility]) [address] [place] [address] * CBC auto differential (01/13/2025 10:51 AM CDT) White Blood Count 6.2 4.0 - 11.4 K/mm3 01/13/2025 11:03 AM CDT [facility] Red Blood Count 4.48 3.93 - 5.22 M/mm3 01/13/2025 11:03 AM T [facility] Hemoglobin 13.0 11.2 - 15.7 g/dL 01/13/2025 11:03 AM T [facility] Hematocrit 37.7 34.1 - 44.9 % 01/13/2025 11:03 AM T [facility] Mean Cell Volume 84.2 81.6 - 97.4 fL 01/13/2025 11:03 AM T [facility] MEAN CORPUSCULAR HEMOGLOBIN 29.0 26.7 - 32.8 pg 01/13/2025 11:03 AM T [facility] Mean Corpuscular Hemoglobin Concentration 34.4 31.6 - 36.0 g/dL 01/13/2025 11:03 AM T [facility] RED CELL DISTRIBUTION WIDTH-SD 42.9 35.6 - 49.5 fl 01/13/2025 11:03 AM T [facility] Platelet Count 289 150 - 450 K/mm3 01/13/2025 11:03 AM CDT [facility] Mean Platelet Volume 8.5 7.0 - 10.2 fL 01/13/2025 11:03 AM T [facility] ANC (AUTOMATED) 4.1 2.0 - 9.8 K/ul 01/13/2025 11:03 AM T [facility] Lymphocytes % 25.1 10.1 - 46.5 % 01/13/2025 11:03 AM T [facility] Monocytes % 5.5 3.2 - 12.9 % 01/13/2025 11:03 AM T [facility] Neutrophils % 66.1 40.6 - 81.1 % 01/13/2025 11:03 AM CDT [facility] Eosinophils % 2.2 0.0 - 4.2 % 01/13/2025 11:03 AM T [facility] Basophils % 1.1 0.0 - 1.1 % 01/13/2025 11:03 AM T [facility] Lymphocytes Absolute 1.5 0.6 - 3.6 K/uL 01/13/2025 11:03 AM T [facility] Monocytes Absolute 0.3 0.3 - 1.1 K/uL 01/13/2025 11:03 AM T [facility] Neutrophils Absolute 4.1 2.0 - 9.8 K/uL 01/13/2025 11:03 AM T [facility] Eosinophils Absolute 0.10 0.00 - 0.60 K/uL 01/13/2025 11:03 AM T [facility] Basophils Absolute 0.1 0.0 - 0.1 1000/uL 01/13/2025 11:03 AM T [facility] Nucleated RBC % 0.1 0.0 - 0.2 % 01/13/2025 11:03 AM T [facility] Nucleated RBC Absolute 0.01 0.00 - 0.03 K/ul 01/13/2025 11:03 AM T [facility] Blood Venous blood specimen / Unknown Venipuncture / Unknown 01/13/2025 10:51 AM CDT 01/13/2025 10:56 AM CDT Parker Card MD LAB BLOOD ORDERABLES Final Resul t [facility] [address] [address] * Cardiolipin Antibodies, IgA, IgG, IgM (01/13/2025 10:51 AM CDT) [facility] Cardiolipin Antibody Igg <10 <=14 GPL 01/15/2025 6:37 AM CDT [facility] ([facility]) Comment: INTERPRETIVE INFORMATION: Anti-Cardiolipin IgG Ab <=14 GPL: Negative 15-19 GPL: Indeterminate 20-80 GPL: Low to Moderately Positive 81 GPL or above: High Positive The persistent presence of IgG and/or IgM cardiolipin (CL) antibodies in moderate or high levels (greater than 40 GPL and/or greater than 40 MPL units) is a laboratory criterion for the diagnosis of antiphospholipid syndrome (APS). Persistence is defined as moderate or high levels of IgG and/or IgM CL antibodies detected in two or more specimens drawn at least 12 weeks apart (J Throm Haemost. 2006;4:295-306). Lower positive levels of IgG and/or IgM CL antibodies (above cutoff but less than 40 GPL and/or less than 40 MPL units) may occur in patients with the clinical symptoms of APS; therefore, the actual significance of these levels is undefined. Results should not be used alone for diagnosis and must be interpreted in light of APS-specific clinical manifestations and/or other criteria phospholipid antibody tests. Cardiolipin Antibody Igm 11 <=12 MPL 01/15/2025 6:37 AM CDT [facility] ([facility]) Comment: INTERPRETIVE INFORMATION: Anti-Cardiolipin IgM <=12 MPL: Negative 13-19 MPL: Indeterminate 20-80 MPL: Low to Moderately Positive 81 MPL or above: High Positive The persistent presence of IgG and/or IgM cardiolipin (CL) antibodies in moderate or high levels (greater than 40 GPL and/or greater than 40 MPL units) is a laboratory criterion for the diagnosis of antiphospholipid syndrome (APS). Persistence is defined as moderate or high levels of IgG and/or IgM CL antibodies detected in two or more specimens drawn at least 12 weeks apart (J Throm Haemost. 2006;4:295-306). Lower positive levels of IgG and/or IgM CL antibodies (above cutoff but less than 40 GPL and/or less than 40 MPL units) may occur in patients with the clinical symptoms of APS; therefore, the actual significance of these levels is undefined. Results should not be used alone for diagnosis and must be interpreted in light of APS-specific clinical manifestations and/or other criteria phospholipid antibody tests. Cardiolipin Antibody Iga <10 <=11 APL 01/15/2025 6:37 AM CDT [facility] ([facility]) Comment: INTERPRETIVE INFORMATION: Cardiolipin Antibodies, IgA <=11 APL: Negative 12-19 APL: Indeterminate 20-80 APL: Low to Moderately Positive 81 APL or above: High Positive Performed By: [facility] [address] [place] [address] Glove Stitcher: Selwyn Boudreaux MD, PhD CLIA Number: [id number] Blood Venous blood specimen / Unknown Venipuncture / Unknown 01/13/2025 10:51 AM CDT 01/13/2025 10:56 AM CDT Parker Card MD LAB BLOOD ORDERABLES Final Resul t [facility] ([facility]) [address] [place] [address] * Beta-2 Glycoprotein 1 Antibodies, IgG & IgM (01/13/2025 10:51 AM CDT) [id number] 1, Igg Antibody <10 <=20 SGU 01/15/2025 4:33 AM CDT [facility] ([facility]) A2Ektuvurxnsks 1, Igm Antibody <10 <=20 SMU 01/15/2025 4:33 AM CDT [facility] ([facility]) Comment: INTERPRETIVE INFORMATION: [id number] I, IgG and IgM Antibody The persistent presence of IgG and/or IgM beta 2 glycoprotein I (B2GPI) antibodies is a laboratory criterion for the diagnosis of antiphospholipid syndrome (APS). Persistence is defined as moderate or high levels of IgG and/or IgM B2GPI antibodies detected in two or more specimens drawn at least 12 weeks apart (J Throm Haemost. 2006;4:295-306). B2GPI results greater than 20 SGU (IgG) and/or SMU (IgM) are considered positive based on the cutoff values established for this test. International reference materials and consensus units for anti-B2GPI antibodies have not been established (Clin Gena Acta. 2012;413(1-2):358-60; Arthritis Rheum. 2012;64(1):1-10.); results can be variable between different commercial immunoassays and cannot be compared. Strong clinical correlation is recommended for a diagnosis of APS. Low positive IgG and IgM B2GPI antibody levels should be interpreted in light of APS-specific clinical manifestations and/or other criteria phospholipid antibody tests. Performed By: [facility] [address] [place] [address] Glove Stitcher: Selwyn Boudreaux MD, PhD CLIA Number: [id number] Blood Venous blood specimen / Unknown Venipuncture / Unknown 01/13/2025 10:51 AM CDT 01/13/2025 10:56 AM CDT Parker Card MD LAB BLOOD ORDERABLES Final Resul t [facility]) [address] [place] [address] * Antithrombin panel (01/13/2025 10:51 AM CDT) Antithrombin, Enzymatic (Activity 121 76 - 128 % 01/15/2025 6:45 PM CDT [facility]) Comment: REFERENCE INTERVAL: Antithrombin, Enzymatic (Activity) Access complete set of age- and/or gender-specific reference intervals for this test in the [employer] Test Directory (Leo). Antithrombin may be artifactually overestimated in the presence of direct thrombin inhibitors. If clinically indicated, consider repeat testing on a new specimen for confirmation after the presence of anticoagulant medications has been excluded. (J Thromb Haemost. 2020; 18(1):17-22). Antithrombin Antigen 104 82 - 136 % 01/15/2025 6:45 PM CDT [facility]) Comment: REFERENCE INTERVAL: Antithrombin Antigen Access complete set of age- and/or gender-specific reference intervals for this test in the [facility] Test Directory (Leo). Performed By: [facility] [address] [place] [address] Glove Stitcher: Selwyn Boudreaux MD, PhD CLIA Number: [id number] Blood Venous blood specimen / Unknown Venipuncture / Unknown 01/13/2025 10:51 AM CDT 01/13/2025 10:56 AM CDT Parker Card MD LAB BLOOD ORDERABLES Final Resul t [facility] ([facility]) [address] [place] [address] documented in this encounter Visit Diagnoses Diagnosis Large hiatal hernia- Primary Family history of blood clots Personal history of PE (pulmonary embolism) Personal history of venous thrombosis and embolism Large hiatal hernia documented in this encounter Care Teams Chenille Machine Operator Relationship Specialty Start Date End Date Stevan Rodney MD [address] [place] [address] [phone] PCP - General Family Medicine 07/11/24 Faustino Hummel Jr., DO [address] [place] [phone] [facility] Med Onc Original Referring Provider General Surgery 11/22/24 Parker Card MD [address] [place] [address] [id number] Medical Oncologist Oncology 11/22/24 Iggy Gee FNP [address] [place] [address] [phone] Nurse Practitioner Oncology 11/22/24 Kimberly Black AOCNP [address] [place] [address] [phone] Nurse Practitioner Oncology 11/22/24 documented as of this encounter
[2025-01-19 22:54] VITALS: BP 174/98; PULSE 71; RESP 16; TEMP 37; O2SAT 99; BMI 29.8
--- NOTE | 2025-01-19 22:59 | ECG_ITS ---
[facility] Date: 2025-01-19 Pat Name: Val Ponce Department: Room: Gender: Female Statistical Assistant: : 1970 Requested By: Molly Delgado Order Number: [id number] Toth MD: Vasiliy Pineda M.D. Measurements Intervals [place] Rate: 68 P: 48 IL: 181 QRS: 5 QRSD: 81 T: 23 QT: 372 QTc: 398 Interpretive Statements SINUS RHYTHM POSSIBLE LEFT ATRIAL ENLARGEMENT [-0.1mV P-WAVE IN V1/V2] POSSIBLE LEFT VENTRICULAR HYPERTROPHY [VOLTAGE CRITERIA PLUS LAE OR QRS WIDENING] Compared to ECG 10/22/2022 07:09:56 T-wave abnormality no longer present Electronically Signed On 01-20-2025 20:28:38 CDT by Vasiliy Pineda M.D. [id number]
--- OUTSIDE RECORDS SUMMARY | 2025-01-19 23:01 | XMS_ITS | Clinical Summary ---
Author Organization [facility] Address [address] [place] [address] Phone Care Team Providers Care Mine Inspector Name Role Phone DarbyMely faustin Kelsea COTTON Primary Care Provider Allergies Active Allergy Reactions Criticality Noted Date Comments Nickel Rash Low 09/23/2022 Penicillins Unknown 06/29/2018 Medications apixaban (ELIQUIS) 5 mg (74 tabs) Tablets, Dose Pack .COMPLEX 3 Active OMEPRAZOLE ORAL Take by mouth. Active budesonide-form oteroL (SYMBICORT) 80-4.5 mcg/actuation HFA Aerosol Inhaler Take 2 Puffs by inhalation 2 times daily. Active albuterol sulfate HFA 90 mcg/actuation aerosol inhaler Take 2 Puffs by inhalation every 6 hours as needed for Shortness of Breath. Active cetirizine HCl (CETIRIZINE ORAL) Take by mouth. Activ e HYDROCHLOROTHIA ZIDE ORAL Take by mouth. Activ e Active Problems No known active problems Encounters Date Type Department Care Team Description 01/07/2025 External Device Data [facility] ABSTRACTION Provider, Abstract 01/07/2025 External Device Data [facility] ABSTRACTION Provider, Abstract 01/07/2025 External Device Data [facility] ABSTRACTION Provider, Abstract 12/31/2024 External Device Data [facility] ABSTRACTION Provider, Abstract 12/10/2024 External Device Data [facility] ABSTRACTION Provider, Abstract 12/10/2024 External Device Data [facility] ABSTRACTION Provider, Abstract 12/10/2024 External Device Data [facility] ABSTRACTION Provider, Abstract 11/19/2024 External Device Data [facility] ABSTRACTION Provider, Abstract 11/19/2024 External Device Data [facility] ABSTRACTION Provider, Abstract 11/19/2024 External Device Data [facility] ABSTRACTION Provider, Abstract 11/13/2024 11:38 AM CDT - 11/13/2024 1:02 PM CDT Emergency [facility] Emergency Medicine [address] [place] [id number] Xavier Garcia DO Trapezius muscle spasm (Primary Dx) Discharge Disposition: Home or Self Care 11/13/2024 Travel from Last 3 Months Social History Tobacco Use Types Packs/Day Years Used Date Smoking Tobacco: Former Cigarettes 3 10 1 987 - 1996 Passive Smoke Exposure: Never Smokeless Tobacco: Never Tobacco Cessation:Counseling Given: Not Answered Alcohol Use Standard Drinks/Week Comments No 0 (1 standard drink = 0.6 oz pur e alcohol) Feeling Safe Answer Date Recorded Are you in a relationship wi th someone who hurts you emotionally and/or physically? No 11/13/2024 Food Insecurity Answer Date Recorded Patient needs follow up regarding: Not on file 06/23/2023 Transportation Needs Answer Date Record ed Patient needs follow up regarding: Not on file 06/23/2023 Housing Stability Answer Date Recorded Patient needs follow up regarding: Not on file 06/23/2023 Utility Needs Answer Date Recorded Patient needs follow up regarding: Not on file 06/23/2023 Comments No Sex and Gender Information Value Date Recorded Sex Assigned at Not on file Legal Sex Female 9:45 PM [employer] Gender Identity Not on file Sexual Orientation Not on file Last Filed Vital Signs Vital Sign Reading Time Taken Comments Blood Pressure 146/82 11/13/2024 1:00 PM CDT Pulse 61 11/13/2024 1:00 PM CDT Temperature 36.9 C (98.4 F) 11/13/2024 11:44 AM CDT Respiratory Rate 15 11/13/2024 1:00 PM CDT Oxygen Saturation 98% 11/13/2024 1:00 PM CDT Inhaled Oxygen Concentration - - Weight 80.1 kg (176 lb 9.6 oz) 11/13/2024 11:44 AM CDT Height 162.6 cm (5' 4 ) 11/13/2024 11:44 AM CDT Body Mass Index 30.31 11/13/2024 11:44 AM CDT Plan of Treatment Health Maintenance Due Date Last Done Comments Pre-Diabetes and Diabetes Screening 1970 HEPATITIS B VACCINES (1 of 3 - 19+ 3-dose series) 02/14/1991 COLORECTAL SCREENING 02/14/2017 Colorectal Cancer Screening 02/14/2017 FIT-DNA Q 3 years 02/14/2017 FIT/FOBT Q 1 year 02/14/2017 Flex Sig/CT Colonography Q 5 years 02/14/2017 ZOSTER VACCINE (1 of 2) 02/14/2022 INFLUENZA VACCINE (#1) 2024 03/31/2016 BREAST CANCER SCREENING 09/17/2025 09/18/19 25, 09/17/2024, 10/29/2013 DTAP/TDAP/TD VACCINES (2 - T d or Tdap) 03/31/2026 03/31/2016 Procedures Procedure Name Priority Date/Time Associated Diagnosis Comments CT CERVICAL SPINE WO CONTRAST Stat 11/13/2024 12:36 PM CDT from Last 3 Months Results * CT CERVICAL SPINE WO CONTRAST (11/13/2024 12:36 PM CDT) Anatomical Region Laterality Modality Spine Computed Tomogra phy 11/13/2024 12:2 4 PM CDT Impressions 11/13/2024 12:52 PM CDT IMPRESSION: Please see below. Exam: CT CERVICAL SPINE WO CONTRAST Date/Time of Exam: 11/13/2024 12:36 PM Reason For Exam: Cervical radiculopathy, no red flags, Neck pain, acute, known malignancy, Left arm pain and intermittent tingling. Asymptomatic now.. Diagnosis: See Reason for Exam. Technique: CT of the cervical spine was performed without the administration of intravenous contrast. Findings: There is no evidence of acute fracture or traumatic subluxation within the cervical spine. Straightening of the sagittal alignment. Disc height loss at C5-6. Mild endplate degeneration at C4-5 and C5-6. A few facet joints are mildly degenerated. This exam is suboptimal for evaluating spinal stenosis. There is at least mild spinal stenosis at C5-6, not well assessed. There is moderate narrowing of the right foramen at C5-6. At least mild narrowing of the left foramen at C5-6. The visualized paraspinous soft tissues are unremarkable. IMPRESSION: 1. No acute findings. 2. Degenerative findings as described. No definite high-grade spinal stenosis, but note that evaluation is limited on this exam, and better assessment could be obtained with MRI or CT myelogram. Narrative Procedure Note Jono Pederson MD - 11/13/2024 IMPRESSION: Please see below. Exam: CT CERVICAL SPINE WO CONTRAST Date/Time of Exam: 11/13/2024 12:36 PM Reason For Exam: Cervical radiculopathy, no red flags, Neck pain, acute, known malignancy, Left arm pain and intermittent tingling. Asymptomatic now.. Diagnosis: See Reason for Exam. Technique: CT of the cervical spine was performed without the administration of intravenous contrast. Findings: There is no evidence of acute fracture or traumatic subluxation within the cervical spine. Straightening of the sagittal alignment. Disc height loss at C5-6. Mild endplate degeneration at C4-5 and C5-6. A few facet joints are mildly degenerated. This exam is suboptimal for evaluating spinal stenosis. There is at least mild spinal stenosis at C5-6, not well assessed. There is moderate narrowing of the right foramen at C5-6. At least mild narrowing of the left foramen at C5-6. The visualized paraspinous soft tissues are unremarkable. IMPRESSION: 1. No acute findings. 2. Degenerative findings as described. No definite high-grade spinal stenosis, but note that evaluation is limited on this exam, and better assessment could be obtained with MRI or CT myelogram. Xavier Garcia DO CT ORDERABLES Final Result from Last 3 Months Insurance [facility] MEDICAID RX [id number] Medicaid Advance Directives For more information, please contact: [phone] * Full Code (Latest Code Status on File) Date Activated Date Inactivated Comments 10/12/2022 6:07 PM 10/14/2022 7:13 PM * Full Code Date Activated Date Inactivated Comments 10/12/2022 9:03 AM 10/12/2022 6:07 PM Care Teams Mine Inspector Relationship Specialty Start Date End Date Mely Cain FNP [address] [place] [id number] PCP - General 10/28/20
--- OUTSIDE RECORDS SUMMARY | 2025-01-19 23:01 | XMS_ITS | Clinical Summary ---
Author Organization [facility] Address [address] [address] Phone Care Team Providers Care Boat Dispatcher Name Role Phone Stevan Rodney MD Primary Care Provider Shaheed Stewart DO, Donald Unavailable [phone] Parker Card MD Unavailable Iggy Gee PACKING INSPECTOR Unavailable Kimberly Black AOCNP Unavailable [phone] Allergies Active Allergy Reactions Criticality Noted Date Comments Nickel Rash Low 09/23/2022 Penicillins Unknown 06/29/2018 CHILDHOOD REACTION Medications Ventolin HFA 90 mcg/actuation inhaler inhale 2 puffs by mouth every 4 to 6 hours as needed 04/09/2024 Active budesonide-form oteroL (Symbicort) 160-4.5 mcg/actuation inhaler Inhale 2 puffs 2 (two) times a day. Active omeprazole (PriLOSEC) [address] capsule Active cetirizine (ZyrTEC) 5 mg chewable tablet Chew 5 mg 1 (one) time each day if needed for allergies. Active amitriptyline (Elavil) 10 mg tablet TAKE 1 TO 2 TABLETS BY MOUTH EVERY DAY AT BEDTIME 10/10/2024 Active hydroCHLOROthia zide (HYDRODiuril) 25 mg tablet Take 25 mg by mouth 1 (one) time each day. 10/20/2024 Active Active Problems Problem Noted Date Diagnosed Date Large hiatal hernia 10/30/2024 Dysphagia, unspecified 07/11/2024 Heartburn 07/11/2024 Encounters Date Type Department Care Team Description 01/13/2025 11:00 AM CDT Lab LAB [address] [address] Family history of blood clots; Personal history of PE (pulmonary embolism) 01/08/2025 Telephone MEDICAL ONCOLOGY [facility] - [facility] Oncology [address] [place] [phone] Masood Garcia RN 12/20/2024 Orders Only MEDICAL ONCOLOGY [facility] - [address] [address] Janna Rocha, DIRECTOR OF MUSIC-IV Family history of blood clots (Primary Dx); Personal history of PE (pulmonary embolism) 12/19/2024 11:30 AM CDT Consult MEDICAL ONCOLOGY [facility] Oncology [address] [place] [phone] Parker Card MD Family history of blood clots; Personal history of PE (pulmonary embolism) 12/19/2024 Education [facility] ONCOLOGY [facility] Oncology [address] [place] [address] Masood Garcia RN 11/22/2024 Telephone [facility] [address] [address] Faustino Hummel Jr., DO Referral- Hematology 10/30/2024 9:00 AM CDT Consult [facility] SURGERY CLINIC [address] [address] Faustino Hummel Jr., Large hiatal hernia (Primary Dx); Family history of blood clots; Personal history of PE (pulmonary embolism) from Last 3 Months Family History Medical History Relation Comments Cancer Brother 1 PROSTATE Asthma Father Heart disease Father Hypertension Father Cancer Maternal Grandmother Stroke Maternal Grandmother Anesthesia problems Neg Hx Breast cancer Neg Hx Relation Status Comments Brother 1 Brother 2 Alive Father Alive Maternal Grandmother Alive Social History Tobacco Use Types Packs/Day Years Used Date Smoking Tobacco: Former Cigarettes 2 5 Q uit: 06/01/1996 Smokeless Tobacco: Never Tobacco Cessation:Counseling Given: Not Answered Alcohol Use Standard Drinks/Week Comments Never 0 (1 standard drink = 0.6 oz pur e alcohol) B1300 Health Literacy Answer Date Recor ded How often do you need to hav e someone help you when you read instructions, pamphlets, or other written material from your doctor or pharmacy? Never 12/12/2024 [facility] Utilities Answer Date Recorded In the past 12 months has e [employer], oil, or water [employer] threatened to shut off services in your [...] week 12/12/2024 How often do you attend [facility] or temple services? Never 12/12/2024 Do you belong to any clubs o r organizations such as mandaeism groups, unions, fraternal or athletic groups, or [...] Recorded Patient Health Questionnaire-2 Score 0 12/19/2024 [facility] - Occupational Stress Questionnaire Answer Date Recorded [...] any time in the past 12 m onths, were you homeless or living in a halfway (including now)? No 12/12/2024 [facility] - Mental Health Answer Date Recorde d Little interest or pleasure in doing things Not at all 12/19/2024 Feeling down, depressed, or hopeless Not at all 12/19/2024 Feeling of Stress Not on file 12/19/2024 Comments No Sex and Gender Information Value Date Recorded Sex Assigned at Female 04/09/2024 3:34 PM PARENT TRAINER Legal Sex Female 3:31 PM PARENT TRAINER Gender Identity Female 04/09/2024 3:34 PM PARENT TRAINER Sexual Orientation Straight 05/07/2024 10 :15 AM PARENT TRAINER Last Filed Vital Signs Vital Sign Reading Time Taken Comments Blood Pressure 123/82 12/19/2024 11:21 AM CDT Pulse 77 12/19/2024 11:21 AM CDT Temperature 36.3 C (97.4 F) 12/19/2024 11:21 AM CDT Respiratory Rate 16 12/19/2024 11:21 AM CDT Oxygen Saturation 96% 12/19/2024 11:21 AM CDT Inhaled Oxygen Concentration - - Weight 78.2 kg (172 lb 6.4 oz) 12/19/2024 11:21 AM CDT Height 161.9 cm (5' 3.75 ) 12/19/2024 11:21 AM C DT Body Mass Index 29.82 12/19/2024 11:21 AM CDT Plan of Treatment Upcoming Encounters Date Type Department Care Team (Latest Contact Info) Description 02/06/2025 2:00 PM CDT Follow-Up MEDICAL ONCOL[facility]Y CLINIC - [facility] [address] [place] [address] [phone] Parker Card MD [address] [phone] 03/03/2025 7:30 AM PARENT TRAINER Hospital Encounter [facility] [address] [place] [address] Faustino Hummel Jr., [address] 656301 03/03/2025 7:30 AM PARENT TRAINER - 03/03/2025 9:45 AM PARENT TRAINER Surgery [facility] [address] [place] [address] Faustino Hummel Jr., DO [address] [address] [phone] (work) ROBOTIC ASSISTED LAP HIATAL HERNIA REPAIR [24367 (CPT )] Scheduled Procedures Name Priority Associated Diagnoses Date/Ti me ROBOTIC ASSISTED LAP HIATAL HERNIA REPAIR Large hiatal hernia 03/03/2025 7:30 AM PARENT TRAINER ROBOTIC ASSISTED LAP NEENA/TOUPET FUNDOPLICATION Large hiatal hernia 03/03/2025 7:30 AM PARENT TRAINER Health Maintenance Due Date Last Done Comments CT Colonography 1972 Colonoscopy 1972 Colorectal Cancer Screening 1972 FIT-DNA 1972 FIT 1972 FOBT 1972 Sigmoidoscopy 1972 MMR Vaccines (1 of 1 - Stand naseem series) 02/14/1973 DTaP,Tdap,and Td Vaccines (1 - Tdap) 02/14/1979 Varicella Vaccines (1 of 2 - 13+ 2-dose series) 02/14/1985 Diabetes Screening 02/14/1990 Social Drivers of Health (SDoH) 02/14/1990 Hepatitis B Vaccines (1 of 3 - 19+ 3-dose series) 02/14/1991 Pneumococcal Vaccine: 50+ Ye ars (1 of 2 - PCV) 02/14/1991 Pneumococcal Vaccine (1 of 2 - PCV) 02/14/1991 Zoster Vaccines (1 of 2) 02/14/2022 COVID-19 Vaccine (1 - 2023-2 5 season) 2024 Influenza Vaccine (#1) 2024 Mammogram 09/17/2025 09/17/2024 Depression Screening 12/20/2025 12/19/2024 RSV Vaccines (1 - 1-dose 75+ series) 02/14/2047 HIB Vaccines Aged Out No longer eligi ble based on patient's age to complete this topic HPV Vaccines Aged Out No longer eligi ble based on patient's age to complete this topic Hepatitis A Vaccines Aged Out No long er eligible based on patient's age to complete this topic IPV Vaccines Aged Out No longer eligi ble based on patient's age to complete this topic Meningococcal B Vaccine Aged Out No l onger eligible based on patient's age to complete this topic Meningococcal Vaccine Aged Out No rodri travis eligible based on patient's age to complete this topic Rotavirus Vaccines Aged Out No longer eligible based on patient's age to complete this topic Procedures Procedure Name Priority Date/Time Associated Diagnosis Comments CREATININE, SERUM Routine 01/13/2025 10: 51 AM [...] clots Personal history of PE (pulmonary embolism) CARDIOLIPIN ANTIBODIES, IGA, IGG, IGM Routine 01/13/2025 10:51 AM CDT Family history of blood clots Personal history of PE (pulmonary embolism) BETA-2 GLYCOPROTEIN 1 ANTIBODIES, IGG AND IGM Routine 01/13/2025 10:51 AM CDT Family history of blood clots Personal history of PE (pulmonary embolism) ANTITHROMBIN PANEL Routine 01/13/2025 10 :51 AM CDT Family history of blood clots Personal history of PE (pulmonary embolism) MAMMOGRAM BREAST SCREENING TOMOSYNTHESIS BILATERAL Routine 09/17/2024 7:56 AM CDT Visit for screening mammogram from Last 3 Months or Most Recently Relevant to Health Maintenance Results * Cardiolipin Antibodies, IgA, IgG, IgM (01/13/2025 10:51 AM CDT) Cardiolipin Antibody Igg <10 <=14 GPL 01/15/2025 6:37 AM [email or web address]) Comment: INTERPRETIVE INFORMATION: Anti-Cardiolipin IgG Ab <=14 [...] Igm 11 <=12 MPL 01/15/2025 6:37 AM [email or web address]) Comment: INTERPRETIVE INFORMATION: Anti-Cardiolipin IgM <=12 MPL: [...] Iga <10 <=11 APL 01/15/2025 6:37 AM [email or web address]) Comment: INTERPRETIVE INFORMATION: Cardiolipin Antibodies, IgA <=11 APL: Negative 12-19 APL: Indeterminate 20-80 APL: Low to Moderately Positive 81 APL or above: High Positive Performed By: [facility] [address] [place] [address] Telephone Solicitor: Selwyn Boudreaux MD, PhD CLIA Number: [id number] Blood Venous blood specimen / Unknown Venipuncture / Unknown 01/13/2025 10:51 AM CDT 01/13/2025 10:56 AM CDT Parker Card MD LAB BLOOD ORDERABLES Final Resul t [facility] ([facility]) [address] [place] [address] * Beta-2 Glycoprotein 1 Antibodies, IgG & IgM (01/13/2025 10:51 AM CDT) [id number] 1, Igg Antibody <10 <=20 SGU 01/15/2025 4:33 AM CDT [facility] ([facility]) [id number] 1, Igm Antibody <10 <=20 SMU 01/15/2025 4:33 AM CDT [facility] ([facility]) Comment: INTERPRETIVE INFORMATION: E2Ruyzbhogolsq I, IgG and IgM Antibody The persistent [...] other criteria phospholipid antibody tests. Performed By: [facility] [address] [place] [id number] Telephone Solicitor: Selwyn Boudreaux MD, PhD CLIA Number: [id number] Blood Venous blood specimen / Unknown Venipuncture / Unknown 01/13/2025 10:51 AM CDT 01/13/2025 10:56 AM CDT Parker Card MD LAB BLOOD ORDERABLES Final Resul t [facility] [address] [place] [phone] * (ABNORMAL) Protein C and S Panel, Functional (01/13/2025 10:51 AM CDT) Protein C Functional 177(H) 83 - 168 % 01/15/2025 2:10 PM CDT [employer]) Comment: INTERPRETIVE INFORMATION: Protein C, Functional Access complete set of age- and/or gender-specific reference intervals for this test in the [facility] Test Directory (My[facility]veTab). Protein C may be artifactually overestimated in the presence of heparin, direct thrombin inhibitors, or direct factor Xa inhibitors. If clinically indicated, consider repeat testing on a new specimen for confirmation after the presence of anticoagulant medications has been excluded. (J Thromb Haemost. 2020; 18(2):271-277). Protein S Functional 120 57 - 131 % 01/15/2025 2:10 PM CDT [employer]) Comment: INTERPRETIVE INFORMATION: Protein S, Functional Patients [...] reference intervals for this test in the [facility] Test Directory (MyEveTab). Performed By: [facility] [address] [place] [address] Telephone Solicitor: Selwyn Boudreaux MD, PhD CLIA Number: [id number] Blood Venous blood specimen / Unknown Venipuncture / Unknown 01/13/2025 10:51 AM CDT 01/13/2025 10:56 AM CDT Parker Card MD LAB BLOOD ORDERABLES Final Resul t [facility] ([facility]) [address] [place] [id number] * CBC auto differential (01/13/2025 10:51 AM CDT) Pathologist [facility] White Blood Count 6.2 4.0 - 11.4 K/mm3 01/13/2025 11:03 AM CDT [facility] Red Blood Count 4.48 3.93 - 5.22 M/mm3 01/13/2025 11:03 AM CDT [facility] Hemoglobin 13.0 11.2 - 15.7 g/dL 01/13/2025 11:03 AM CDT [facility] Hematocrit 37.7 34.1 - 44.9 % 01/13/2025 11:03 AM CDT [facility] Mean Cell Volume 84.2 81.6 - 97.4 fL 01/13/2025 11:03 AM CDT [facility] MEAN CORPUSCULAR HEMOGLOBIN 29.0 26.7 - 32.8 pg 01/13/2025 11:03 AM CDT [facility] Mean Corpuscular Hemoglobin Concentration 34.4 31.6 - 36.0 g/dL 01/13/2025 11:03 AM CDT [facility] RED CELL DISTRIBUTION WIDTH-SD 42.9 35.6 - 49.5 fl 01/13/2025 11:03 AM CDT [facility] Platelet Count 289 150 - 450 K/mm3 01/13/2025 11:03 AM CDT [facility] Mean Platelet Volume 8.5 7.0 - 10.2 fL 01/13/2025 11:03 AM CDT [facility] ANC (AUTOMATED) 4.1 2.0 - 9.8 K/ul 01/13/2025 11:03 AM CDT [facility] Lymphocytes % 25.1 10.1 - 46.5 % 01/13/2025 11:03 AM CDT [facility] Monocytes % 5.5 3.2 - 12.9 % 01/13/2025 11:03 AM CDT [facility] Neutrophils % 66.1 40.6 - 81.1 % 01/13/2025 11:03 AM CDT [facility] Eosinophils % 2.2 0.0 - 4.2 % 01/13/2025 11:03 AM CDT [facility] Basophils % 1.1 0.0 - 1.1 % 01/13/2025 11:03 AM CDT [facility] Lymphocytes Absolute 1.5 0.6 - 3.6 K/uL 01/13/2025 11:03 AM CDT [facility] Monocytes Absolute 0.3 0.3 - 1.1 K/uL 01/13/2025 11:03 AM CDT [facility] Neutrophils Absolute 4.1 2.0 - 9.8 K/uL 01/13/2025 11:03 AM CDT [facility] Eosinophils Absolute 0.10 0.00 - 0.60 K/uL 01/13/2025 11:03 AM CDT [facility] Basophils Absolute 0.1 0.0 - 0.1 1000/uL 01/13/2025 11:03 AM CDT [facility] Nucleated RBC % 0.1 0.0 - 0.2 % 01/13/2025 11:03 AM CDT [facility] Nucleated RBC Absolute 0.01 0.00 - 0.03 K/ul 01/13/2025 11:03 AM CDT [facility] Blood Venous blood specimen / Unknown Venipuncture / Unknown 01/13/2025 10:51 AM CDT 01/13/2025 10:56 AM CDT us Parker Card MD LAB BLOOD ORDERABLES Final Resul t [facility] [address] [address] * Antithrombin panel (01/13/2025 10:51 AM CDT) [facility] Signature Antithrombin, Enzymatic (Activity 121 76 - 128 % 01/15/2025 6:45 PM CDT [facility] ([facility]) Comment: REFERENCE INTERVAL: Antithrombin, Enzymatic (Activity) Access complete set of age- and/or gender-specific reference intervals for this test in the [facility] Test Directory (MyEveTab). Antithrombin may be artifactually overestimated in the presence of direct thrombin inhibitors. If clinically indicated, consider repeat testing on a new specimen for confirmation after the presence of anticoagulant medications has been excluded. (J Thromb Haemost. 2020; 18(1):17-22). Antithrombin Antigen 104 82 - 136 % 01/15/2025 6:45 PM CDT [facility] ([facility]) Comment: REFERENCE INTERVAL: Antithrombin Antigen Access complete set of age- and/or gender-specific reference intervals for this test in the [facility] Test Directory (MyEveTab). Performed By: [facility] [address] [place] [address] Telephone Solicitor: Selwyn Boudreaux MD, PhD CLIA Number: [id number] Blood Venous blood specimen / Unknown Venipuncture / Unknown 01/13/2025 10:51 AM CDT 01/13/2025 10:56 AM CDT us Parker Card MD LAB BLOOD ORDERABLES Final Resul t Performing Organization Address City/[facility] [address]/ZIP Co de Phone Number [facility] [address] [place] [address] * Creatinine, Serum (01/13/2025 10:51 AM CDT) Creatinine 0.86 0.52 - 1.04 mg/dl LAB CHEMISTRY METHOD 01/13/2025 11:25 AM CDT [facility] eGFR >60 >=60 mL/min/1.73 m2 LAB CHEMISTRY METHOD 01/13/2025 11:25 AM CDT [facility] Blood Venous blood specimen / Unknown Venipuncture / Unknown 01/13/2025 10:51 AM CDT 01/13/2025 10:56 AM CDT us Parker Card MD LAB BLOOD ORDERABLES Final Resul t [facility] [address] [address] * Lupus Anticoagulant Reflexive Panel (01/13/2025 10:51 AM CDT) Prothrombin Time 12.0 12.0 - 15.5 s 01/15/2025 8:11 PM CDT [facility] ([facility]) Ptt-La Ratio 0.77 <=1.20 01/15/2025 8:11 PM CDT [facility] ([facility]) Drvvt Screen 0.86 <=1.20 01/15/2025 8:11 PM CDT [facility] ([facility]) Anti-Xa Qualitative Interpretation Not Performed Not Present 01/15/2025 8:11 PM CDT [facility] ([facility]) Thrombin Time Not Performed <=19.5 s 01/15/2025 8:11 PM CDT [facility] ([facility]) Anticoagulant Medication Neutralization Not Performed Not Performed 01/15/2025 8:11 PM CDT [facility] ([facility]) Neutralized PTT-LA Ratio Not Performed <=1.20 01/15/2025 8:11 PM CDT [facility] ([facility]) Neutralized dRVVT Screen Ratio Not Performed <=1.20 01/15/2025 8:11 PM CDT [facility] ([facility]) Drvvt 1:1 Mix Not Performed <=1.20 01/15/2025 8:11 PM CDT [facility] ([facility]) Drvvt Confirmation Not Performed <=1.20 01/15/2025 8:11 PM CDT [facility] ([facility]) Hexagonal Phospholipid Confirmation Not Performed <=7.9 s 01/15/2025 8:11 PM CDT [facility] ([facility]) Lupus Anticoagulant Interpretation See Note 01/15/2025 8:11 PM CDT [facility] ([facility]) Comment: Lupus anticoagulant not detected. This panel [...] developed and its performance characteristics determined by [facility]. It has not been cleared or approved by the U.S. Food and Drug Administration. This test was performed in a CLIA-certified laboratory and is intended for clinical purposes. Performed By: [facility] [address] [place] [address] Telephone Solicitor: Selwyn Boudreaux MD, PhD CLIA Number: [id number] Blood Venous blood specimen / Unknown Venipuncture / Unknown 01/13/2025 10:51 AM CDT 01/13/2025 10:56 AM CDT Parker Card MD LAB BLOOD ORDERABLES Final Resul t Performing Organization Address City/[facility] [address]/ZIP Co de Phone Number [facility] ([facility]) [address] [place] [phone] * (ABNORMAL) D-dimer, quantitative (01/13/2025 10:51 AM CDT) D-DIMER QUANTITATIVE 0.74(H) <=0.50 ug/mlFEU LAB COAGULATION METHOD 01/13/2025 11:23 AM CDT [facility] Blood Venous blood specimen / Unknown Venipuncture / Unknown 01/13/2025 10:51 AM CDT 01/13/2025 10:56 AM CDT Parker Card MD LAB BLOOD ORDERABLES Final Resul t [facility] [address] [address] * Mammogram breast screening tomosynthesis bilateral (09/17/2024 7:56 AM CDT) Anatomical Region Laterality Modality Breast Bilateral Mammography 09/19/2024 1:08 PM CDT Narrative 09/19/2024 1:10 PM CDT EXAMINATION: SCREENING MAMMOGRAM WITH TOMOSYNTHESIS COMPARISON: 03/21/2023 TECHNIQUE: Bilateral CC and MLO views were obtained with tomosynthesis. FINDINGS: There are scattered areas of fibroglandular density. There is no suspicious mass, calcification or architectural distortion in either breast. No change has occurred. IMPRESSION: No evidence of malignancy. Routine Screening Mammogram in 1 Year (Bilateral). BI-Rads 1 - Negative. [address] [id number] [phone] Electronically signed on 09/19/2024 1:10 PM by: Sterling Pfeiffer MD Procedure Note Sterling Pfeiffer MD - 09/19/2024 EXAMINATION: SCREENING MAMMOGRAM WITH TOMOSYNTHESIS COMPARISON: 03/21/2023 TECHNIQUE: Bilateral CC and MLO views were obtained with tomosynthesis. FINDINGS: There are scattered areas of fibroglandular density. There is no suspicious mass, calcification or architectural distortion ineither breast. No change has occurred. IMPRESSION: No evidence of malignancy. Routine Screening Mammogram in 1 Year (Bilateral). BI-Rads 1 - Negative. [address] [id number] [phone] Electronically signed on 09/19/2024 1:10 PM by: Sterling Pfeiffer MD Stevan Rodney MD IMG BI PROCEDURES Final Result from Last 3 Months or Most Recently Relevant to Health Maintenance Insurance [facility] MEDICAID REPLACEMENT Care Teams Boat Dispatcher Relationship Specialty Start Date End Date Stevan Rodney MD [address] [place] [phone] PCP - General Family Medicine 07/11/24 Faustino Hummel Jr., DO [address] [place] [address] [phone] [facility] Med Onc Original Referring Provider General Surgery 11/22/24 Parker Card MD [address] [place] [phone] Medical Oncologist Oncology 11/22/24 Iggy Gee FNP [address] [place] [address] [phone] Nurse Practitioner Oncology 11/22/24 Kimberly Black AOCNP [address] [place] [address] [phone] Nurse Practitioner Oncology 11/22/24
--- NOTE | 2025-01-19 23:04 | CTR_ITS ---
PROCEDURE INFORMATION: Exam: CTA Chest With Contrast Exam date and time: 01/19/2025 11:23 PM Age: 54 years old Clinical indication: Bloating and other: Diarrhea with melena; Shortness of breath; Prior surgery; Surgery date: 6+ months; Surgery type: Hysterectomy; C/O SOB with bloatind and diarrhea with melena. Recent history of pe. ; Additional info: History of pe, bloating, melena, diarrhea TECHNIQUE: Imaging protocol: Computed tomographic angiography of the chest with contrast. Exam focused on the arteries. 3D rendering (Not supervised by radiologist): MIP and/or 3D reconstructed images were created by the technologist. Radiation optimization: All CT scans at this facility use at least one of these dose optimization techniques: automated exposure control; mA and/or kV adjustment per patient size (includes targeted exams where dose is matched to clinical indication); or iterative reconstruction. Contrast material: OMNI 350; Contrast volume: 100 ml; Contrast route: INTRAVENOUS (IV); COMPARISON: CT angio chest PE protcl [id number] 10/22/2022 9:22 AM RADIATION DOSE METRICS: Total DLP (mGy-cm): 1068.22 FINDINGS: Pulmonary arteries: Normal caliber pulmonary artery tree without filling defect. Aorta: There is insufficient contrast in the aortic lumen to exclude acute dissection or penetrating ulcer. Thoracic aorta is normal in caliber. Thyroid: Severely atrophic or surgically absent thyroid. Lungs: Unremarkable. No consolidation. No masses. Pleural spaces: Unremarkable. No pneumothorax. No pleural effusion. Heart: Mild cardiomegaly with mild prominence of the left ventricle. Lymph nodes: Unremarkable. No enlarged lymph nodes. Diaphragm: Moderate sliding hiatal hernia. Bones/joints: Unremarkable. No acute fracture. Soft tissues: Unremarkable. PROCEDURE INFORMATION: Exam: CT Abdomen And Pelvis With Contrast Exam date and time: 01/19/2025 11:23 PM Age: 54 years old Clinical indication: Bloating and other: Diarrhea with melena; Shortness of breath; Prior surgery; Surgery date: 6+ months; Surgery type: Hysterectomy; C/O SOB with bloatind and diarrhea with melena. Recent history of pe. ; Additional info: History of pe, bloating, melena, diarrhea TECHNIQUE: Imaging protocol: Computed tomography of the abdomen and pelvis with contrast. Radiation optimization: All CT scans at this facility use at least one of these dose optimization techniques: automated exposure control; mA and/or kV adjustment per patient size (includes targeted exams where dose is matched to clinical indication); or iterative reconstruction. Contrast material: OMNI 350; Contrast volume: 100 ml; Contrast route: INTRAVENOUS (IV); COMPARISON: CT abdomen pelvis w con* [id number] 12/04/2023 1:23 PM RADIATION DOSE METRICS: Total DLP (mGy-cm): 1068.22 FINDINGS: Liver: Normal configuration. Homogeneous parenchyma. Gallbladder and biliary ducts: Postprandial gallbladder is contracted. No biliary tree dilation. Pancreas: No edema or visible mass. Spleen: Homogeneous parenchyma without abnormal enlargement. Adrenal glands: Normal configuration. Kidneys and ureters: No evidence of obstruction. No visible inflammation. Stomach and bowel: Postprandial stomach. Normal caliber small bowel. Distal colonic diverticulosis without evidence of acute diverticulitis. No bowel wall thickening. No contrast extravasation into the bowel lumen. Appendix: Normal appendix is confirmed. Intraperitoneal space: No free air. No significant fluid collection. Vasculature: Normal caliber aortoiliac system. Patent portal vein and tributaries. No portal venous gas. Lymph nodes: No enlarged lymph nodes. Urinary bladder: Unremarkable as visualized. Reproductive: Prior hysterectomy. No evidence of vaginal cuff or adnexal mass. Bones/joints: No fracture or destructive lesion. Soft tissues: Fat containing umbilical hernia. No perineal/perianal abscess or inflammation. CT/CT angio chest w abd pel w con IMPRESSION: 1. No findings of acute or chronic PE. Clear lung parenchyma. 2. Moderate sliding hiatal hernia. IMPRESSION: Etiology of patient's melena is unclear from this exam. There is no visible contrast extravasation into the bowel, and no bowel inflammatory change or visible mass although sensitivity is limited. Consider nuclear medicine tagged red blood cell study for slow or intermittent bleeding. GI consultation may be helpful as well.
[2025-01-19 23:24] LABS: Hematocrit 33.4 % (36-47); Hemoglobin 11.00 g/dL (11.27-16.99); Mean Corpuscular HGB Conc 32.9 g/dL (30-55); Mean Corpuscular Hemoglobin 28.5 pg (27-33); Mean Corpuscular Volume 86.5 fl (85-98); Nucleated Red Blood Cells % 0 %; Platelet Count 285 10^3/cmm (157-399); Red Blood Count 3.86 10^6/uL (3.85-5.65); White Blood Count 8.99 10^3/uL (3.29-11.43)
[2025-01-19] MEDS: iohexol 350 mg/mL 500 mL Btl (per mL) IV (23:25)
[2025-01-19 23:41] LABS: Glucose Urine UA Negative (Normal); Nitrate Urine Negative (Negative); Specific Gravity, Urine 1.006 (1.005-1.030)
[2025-01-19 23:41] LABS: Alanine Aminotransferase 28 U/L (0-33); Albumin Level 4.2 g/dL (3.5-5.2); Alkaline Phosphatase 91 U/L (35-105); Anion Gap 19.0 (5-19); Aspartate Amino Transferase 15 U/L (0-32); Blood Urea Nitrogen 12 mg/dL (6-20); Calcium 9.3 mg/dL (8.5-10.5); Carbon Dioxide 22 mmol/L (22-29); Chloride 107 mmol/L (98-107); Creatinine Clr Calc Pharmacy 83.6176; Globulin 3.3 g/dL (1.3-4.6); Glucose 98 mg/dL (65-115); Lipase 51 U/L (13-60); Osmolality Calculated 300 mOsm/kg (285-295); Potassium 3.0 mmol/L (3.5-5.1); Sodium 145 mmol/L (136-145); Total Protein 7.5 g/dL (6.6-8.7)
[2025-01-19 23:46] LABS: Add Urine Microscopic? YES
--- NOTE | 2025-01-19 23:54 | ED_ITS ---
HPI - Back Pain/Injury 2 General: Chief Complaint: Back Pain/Injury Stated Complaint: Shaking, SOB, Bloated, Pain all over Time Seen by Provider: 01/19/25 23:03 History of Present Illness: 52-year-old female that has worsening sh ortness of breath and this over the last 3 days. Patient has history of PE x 3 on 1 event status post hysterectomy. She states that her shortness of breath feels similar to this. As well, 2 hours prior to arrival, she had bloating, and pain all over her abdomen. She has not had any recent cold or virus. She does not have any upper respiratory symptoms. Denies sputum production, however admits to nonproductive cough. Associated symptoms: Deny abdominal pain, fatigue, fever(s), nausea, syncope or vomiting Related Data Home Medications ?Medication ?Instructions ?Recorded ?Confirmed famotidine 20 mg tablet (Pepcid) 20 mg PO DAILY 05/06/24 budesonide-formoterol HFA 80 2 puff inhalation DAILY 1 05/06/24 mcg-4.5 mcg/actuation aerosol inhaler (Symbicort) cetirizine 10 mg tablet mg PO 07/16/24 07/16/24 Previous Rx's ?Medication ?Instructions ?Recorded albuterol sulfate 90 mcg/actuation 1 inh inhalation QI D PRN shortness 07/26/23 aerosol inhaler (Ventolin HFA) of breath or wheezing # 8.5 grams loratadine 10 mg tablet (Allergy See Rx Instructions . Route 02/27/24 Relief (loratadine)) .COMPLEX #90 tabs topiramate 100 mg tablet (Topamax) 100 mg PO DAILY #30 tabs 07/16/24 methylprednisolone 4 mg tablets in See Rx Instructions PO .COMPLEX 01/20/25 a dose pack (Medrol (Berny)) #21 ea Allergies Allergy/AdvReac Type Severity Reaction Status Date / Time Penicillins Allergy Unknown other Verified 01/19/25 22:59 Review of Systems 2 Const: Denies: fever(s), change in appetite or fatigue Eyes: Denies: change in vision, blurry vision or eye discharge ENMT: Denies: nasal congestion Card: Denies: chest pain, palpitations or syncope GI: Denies: abdominal pain, nausea, vomiting, diarrhea, constipation or hematochezia Musc: Denies: neck pain, extremity swelling, joint pain, joint swelling, joint redness or joint stiffness Skin/Breast: Denies: pruritus Neuro: Denies: headache(s), lack of coordination or dizziness Psych: Denies: anxiety or depression PFSH ED 2 PFSH: Medical History (Updated 01/19/25 @ 23:59 by RENZO Jack) Skin rash Muscle cramps Positive double stranded DNA antibody test History of migraine headaches Abnormal blood finding High risk medication use Unexplained weight gain Ovarian cyst Chest pain Colon cancer screening GERD (gastroesophageal reflux disease) Pelvic pain Abdominal pain Allergic dermatitis Vitamin D deficiency DDD (degenerative disc disease), lumbar Degeneration of intervertebral disc of cervical region Chronic back pain Urinary tract infection Breast cancer screening by mammogram Abnormal EKG Abdominal mass Hyperlipidemia Uterine fibroid Environmental allergies Surgical History S/P WILLAM-BSO September 2022 [facility] included removing leiomyomata Family History Father Hypertension CAD (coronary artery disease) Dementia Myocardial infarction Hyperlipidemia Arrhythmia Renal failure Mother CAD (coronary artery disease) Congestive heart failure (CHF) Brother Cancer prostate Grandfather CAD (coronary artery disease) Hypertension Arrhythmia Congestive heart failure (CHF) Grandmother Stroke Congestive heart failure (CHF) Social History Smoking and tobacco/nicotine status: former use of tobacco/nicotine Alcohol intake: never Substance/Drug Use: never Lives independently: No Household members: spouse Physical Exam 2 Const: COMMON NORMALS: no acute distress, healthy appearing and well nourished GENERAL APPEARANCE: cooperative, comfortable, well kempt and well developed; not in distress and not ill appearing ORIENTATION/CONSCIOUSNESS: Yes oriented to person, Yes oriented to place and Yes oriented to time HENMT: COMMON NORMALS: normocephalic, atraumatic, hearing grossly normal bilaterally, external ears normal and Normal external nose present HEAD & SCALP: normal to inspection, normocephalic and atraumatic FACE & SINUS: n ormal facial exam and face symmetric NOSE: Normal external nose present and Normal nares present EXTERNAL EAR: Yes external ears normal Eye: COMMON NORMALS: Equal, round and reactive pupils present, EOMs intact bilaterally and conjunctivae normal GENERAL EYE: appearance normal, both eyes and all related structures PERIORBITAL: periorbital findings normal E YELID: eyelids normal CONJUNCTIVA: Yes conjunctivae normal PUPIL: Yes Equal, round and reactive pupils present Neck/C-Spine: COMMON NORMALS: full ROM and supple GENERAL: Yes normal visual inspection Resp: COMMON NORMALS: normal respiratory effort EFFORT & INSPECTION: Yes able to speak in complete sentences, No abnormal respiratory pattern, No respiratory distress, No decreased respiratory effort, No labored, No stridor and No Actively coughing AUSCULTATION: bronchial breath sounds Cardio: COMMON NORMALS: regular rate and regular rhythm RATE: regular rate RHYTHM: regular rhythm GI: COMMON NORMALS: Normal to inspection, nondistended, normoactive bowel sounds present and Soft to palpation PALPATION: Yes Soft to palpation O THER: Occult blood is negative. : COMMON NORMALS: Yes no CVA tenderness BLADDER/KIDNEY EXAM: Yes no CVA tenderness Back/Pelvis: COMMON NORMALS: no CVA tenderness Extremity: COMMON NORMALS: normal to inspection, full ROM and capillary refill normal Neuro: SENSORIUM/ORIENTATION: Yes oriented to person, Yes oriented to place and Yes oriented to time GAIT: No Normal gait present MOTOR EXAM: 5/5 motor strength present throughout Psych: COMMON NORMALS: mental status grossly normal APPEARANCE: Yes grossly normal and Yes well kempt Skin: COMMON NORMALS: no rashes or lesions noted, no wounds and turgor normal GENERAL SKIN EXAM: no rashes or lesions noted, elasticity normal, turgor normal and no erythema TRAUMA: no lacerations or abrasions Course 2 Vital Signs: Vital signs: Vital Signs Temperature 98.6 F 01/19/25 22:54 Pulse Rate 71 01/19/25 22:54 Respiratory Rate 16 01/19/25 22:54 Blood Pressure 174/98 01/19/25 22:54 Pulse Oximetry 99 01/19/25 22:54 Oxygen Delivery Me thod Room Air 01/19/25 22:54 MDM - Back Pain/Injury Medical Decision Making Patient is 54-year-old female presented to ED with worsening shortness of breath over the last 3 days, with acute bloating and abdominal pain. No additional findings were noted on her workup today. Her blood pressure is somewhat out of control. Potassium is on the low side, and therefore patient be given potassium. She will be treated with steroids for her shortness of breath. There was no pneumonia to be concerned about as well. No PE. She is to follow- up closely with her doctor. Medical Records I reviewed the patient's medical records. Labs I reviewed the patient's lab results. 01/19/25 23:14 01/19/25 23:14 Radiology Impressions Chest/Abdomen/Pelvis CT 01/19/25 23:04 IMPRESSION: 1. No findings of acute or chronic PE. Clear lung parenchyma. 2. Moderate sliding hiatal hernia. IMPRESSION: Etiology of patient's melena is unclear from this exam. There is no visible contrast extravasation into the bowel, and no bowel inflammatory change or visible mass although sensitivity is limited. Consider nuclear medicine tagged red blood cell study for slow or intermittent bleeding. GI consultation may be helpful as well. Laboratory Results WBC 8.99 10^3/uL (3.29-11.43) 01/19/25 23:14 RBC 3.86 10^6/uL (3.85-5.65) 01/19/25 23:14 Hgb 11.00 g/dL (11.27-16.99) L 01/19/25 23:14 Hct 33.4 % (36-47) L 01/19/25 23:14 MCV 86.5 fl (85-98) 01/19/25 23:14 MCH 28.5 pg (27-33) 01/19/25 23:14 MCHC 32.9 g/dL (30-55) 01/19/25 23:14 RDW 13.9 % (12.1-15.1) 01/19/25 23:14 Plt Count 285 10^3/cmm (157-399) 01/19/25 23:14 MPV 10.7 fL (7.4-10.4) H 01/19/25 23:14 Neut % (Auto) 66.0 % 01/19/25 23:14 Lymph % (Auto) 24.6 % 01/19/25 23:14 [place] % (Auto) 7.2 % 01/19/25 23:14 Eos % (Auto) 1.2 % 01/19/25 23:14 Baso % (Auto) 0.7 % 01/19/25 23:14 Neut # (Auto) 5.93 10^3/uL (1.8-7.7) 01/19/25 23:14 Lymph # (Auto) 2.2 10^3/uL (0.8-4.8) 01/19/25 23:14 [place] # (Auto) 0.7 10^3/uL (0.2-0.9) 01/19/25 23:14 Eos # (Auto) 0.1 10^3/uL (0.0-0.8) 01/19/25 23:14 Baso # (Auto) 0.1 10^3/uL (0.0-0.1) 01/19/25 23:14 Nucleated RBC % (auto) 0 % 01/19/25 23:14 Nucleated RBCs # 0.0 /100WBC 01/19/25 23:14 Sodium 145 mmol/L (136-145) 01/19/25 23:14 Potassium 3.0 mmol/L (3.5-5.1) L 01/19/25 23:14 Chloride 107 mmol/L (98-107) 01/19/25 23:14 Carbon Dioxide 22 mmol/L (22-29) 01/19/25 23:14 Anion Gap 19.0 (5-19) 01/19/25 23:14 BUN 12 mg/dL (6-20) 01/19/25 23:14 Creatinine 0.8 mg/dL (0.5-0.9) 01/19/25 23:14 GFR Calculation 75.3 mL/min (90-130) L 01/19/25 23:14 Glucose 98 mg/dL (65-115) 01/19/25 23:14 Calculated Osmolality 300 mOsm/kg (285-295) H 01/19/25 23:14 Calcium 9.3 mg/dL (8.5-10.5) 01/19/25 23:14 Total Bilirubin 0.2 mg/dL (0.15-1.2) 01/19/25 23:14 AST 15 U/L (0-32) 01/19/25 23:14 ALT 28 U/L (0-33) 01/19/25 23:14 Alkaline Phosphatase 91 U/L (35-105) 01/19/25 23:14 Total Protein 7.5 g/dL (6.6-8.7) 01/19/25 23:14 Albumin 4.2 g/dL (3.5-5.2) 01/19/25 23:14 Globulin 3.3 g/dL (1.3-4.6) 01/19/25 23:14 Lipase 51 U/L (13-60) 01/19/25 23:14 Urine Color Yellow (Yellow) 01/19/25 23:18 Urine Appearance Clear (CLEAR) 01/19/25 23:18 Urine pH 6.0 (5-7) 01/19/25 23:18 Ur Specific [place] 1.006 (1.005-1.030) 01/19/25 23:18 Urine Protein Negative (Negative) 01/19/25 23:18 Urine Glucose (UA) Negative (Normal) 01/19/25 23:18 Urine Ketones Negative (Negative) 01/19/25 23:18 Urine Blood Negative (Negative) 01/19/25 23:18 Urine Nitrate Negative (Negative) 01/19/25 23:18 Urine Bilirubin Negative (Negative) 01/19/25 23:18 Urine Urobilinogen 0.2 mg/dL (Negative) 01/19/25 23:18 Ur Leukocyte Esterase Negative (Negative) 01/19/25 23:18 Urine RBC 0-2 /hpf (0-2) 01/19/25 23:18 Urine WBC 0-5 /hpf (0-5) 01/19/25 23:18 Ur Squamous Epith Cells 0-5 /hpf (0-5) 01/19/25 23:18 Amorphous Sediment Not Reportable 01/19/25 23:18 Urine Bacteria None seen /hpf (NONE) 01/19/25 23:18 Hyaline Casts 0-4 /lpf H 01/19/25 23:18 All radiology interpretation(s) finalized by discharge Discharge Plan Discharge Patient Disposition: Home Clinical Impression: Reactive airway disease Qualifiers: Asthma severity: mild Asthma persistence: intermittent Asthma complication type: with acute exacerbation Qualified Code(s): J45.21 - Mild intermittent asthma with (acute) exacerbation Abdominal hernia Qualifiers: Hernia type: other abdominal hernia Obstruction and gangrene presence: without obstruction or gangrene Qualified Code(s): K45.8 - Other specified abdominal hernia without obstruction or gangrene Condition: Stable Prescriptions: New methylprednisolone [Medrol (Berny)] 4 mg tablets,dose pack See Rx Instructions .ROUTE .COMPLEX Qty: 21 0RF Rx Instructions: for 6 days No Action bupivacaine (PF) 0.5 % (5 mg/mL) solution 5 mg Infiltration ONCE Qty: 1 0RF lidocaine (PF) 10 mg/mL (1 %) solution 10 mg SUBCUT ONCE Qty: 1 0RF budesonide-formoterol [Symbicort] 80-4.5 mcg/actuation HFA aerosol inhaler 2 puff inhalation DAILY famotidine [Pepcid] 20 mg tablet 20 mg PO DAILY cetirizine 10 mg tablet PO topiramate [Topamax] 100 mg tablet 100 mg PO DAILY Qty: 30 5RF albuterol sulfate [Ventolin HFA] 90 mcg/actuation HFA aerosol inhaler 1 inh inhalation QID PRN (Reason: shortness of breath or wheezing) Qty: 8.5 3RF loratadine [Allergy Relief (loratadine)] 10 mg tablet See Rx Instructions .ROUTE .COMPLEX Qty: 90 1RF Dose Instruction: Take 1 tablet by mouth once daily Rx Instructions: Take 1 tablet by mouth once daily Discharge Orders: Discharge ED (Routine); Ordered 01/20/25 Ordered By: Molly Delgado Referrals: Stevan Rodney MD [Primary Care Provider, Family Practice] Discharge Diet: Usual diet Discharge Activity: Resume usual activity Patient Instructions: Abdominal Hernia, Reactive Airways Disease (ED), Patient Portal & Catherine Instructions Activity Restrictions/Additional Instructions: - Medication has been sent to your pharmacy. Start in the morning. You may take all of your medication in the morning for the at day. - Close follow-up with your doctor is imperative. Call and make an appointment in the morning. -Come back if you have worsening abdominal pain, inability to pass gas, or worsening shortness of breath. Stand Alone Forms: Work/School Release Print Language: Lithuanian Coding Level of Care Code ED Autistic Teacher for Filiberto Watson
[2025-01-20 00:20] VITALS: BP 133/82; PULSE 67; RESP 17; O2SAT 100
== END 2025-01-20 00:21 | disposition home or self-care (01) ==
PROVIDERS: Emergency Provider Physician Assistant; PCP Family Medicine
DX: R06.02 Shortness of breath (principal); J45.21 Mild intermittent asthma with (acute) exacerbation; K45.8 Other specified abdominal hernia without obstruction or gangrene; Z87.891 Personal history of nicotine dependence; E87.6 Hypokalemia
CPT/HCPCS: 71275; 74177; 80053; 81001; 83690; 85025; 93005; 96374; 99285; J1100